=== PATIENT | female | born 1955 | race Hispanic/Latino ===

== ENCOUNTER 2021-05-01 18:03 | Emergency (ER) | payer OTHER ==
--- OUTSIDE RECORDS SUMMARY | 2021-05-01 18:14 | XMS REPORT | Continuity of Care Document ---
:[address] [facility] t Address [address] [place] [address] Care Team Providers Name Role Phone NEL Attending Clinician Unavailable HERBER Attending Clinician Unavailable Flavio Attending Clinician Elvin Attending Clinician Natalie Grossman Attending Clinician Milan Attending Clinician Natalie Attending Clinician Nico Bishop Attending Clinician Petey Cho Admitting Clinician Elvin Admitting Clinician Natalie Grossman Admitting Clinician Milan Admitting Clinician Natalie Admitting Clinician Nico Bishop Admitting Clinician Problems Condition Condition Condition Status Onset Resolution Last Treating Co mments Source Name Details Category Date Date Treatment Clinician Date CLOSED Diagnosis Active 2019-11-18 Mem oria AVULSION 2-15 22:02:00 l FRACTURE CLOSED 00:00: Jeancarlos n OF LESSER AVULSION 00 TROCH FRACTURE OF LESSER TROCH Active 11/09/2019 [facility] DISPLACED Diagnosis Active 2019-11-10 Memoria TROCANTER 2-15 03:45:00 l AVULSION 00:00: [place] FX DISPLACED 00 TROCANTER AVULSION FX Active 0 [facility] WOUND Diagnosis Active 2014-11-11 Mem oria DEHISCENCE 2- 21:56:00 l , OPEN FX WOUND 00:00: Jeancarlos n OF RECENT DEHISCENCE 00 LT B , OPEN FX OF RECENT LT B Active 11/04/2014 [facility] L LOWER Diagnosis Active 2014-10-14 Me moria EXTREMITY 1-06 21:56:00 l L LOWER 00:00: [place] EXTREMITY 00 Active 09/30/2014 [facility] L LOWER EX Diagnosis Active 2014-09-30 Memoria 1- 16:17:00 l L LOWER 00:00: [place] EX 00 Active 5 [facility] HRT Diagnosis Active 2014-10-16 Mem oria 1- 11:21:00 l HRT 00:00: Jerome 00 Active 09/30/2014 [facility] CHEST PAIN Diagnosis Active 2013-092014-08-14 Memoria 1- 09:47:00 l CHEST 00:00: Jerome PAIN 00 Active 08/11/2014 [facility] HIGH BLOOD Diagnosis Active 2013-092014-08-12 Memoria PRESSURE 1-17 06:34:00 l HIGH 00:00: [place] BLOOD 00 PRESSURE Active 08/11/2014 [facility] LT LEG Diagnosis Active 2013-092014-07-28 Mem oria ISCHEMIC 0- 22:12:00 l LT LEG 00:00: Jerome ISCHEMIC 00 Active 07/15/2014 [facility] BEDDED Diagnosis Active 2013-092014-08-20 Mem oria OUTPATIENT 0-21 15:21:00 l /L LEG BEDDED 00:00: Jerome THROMBOLYS OUTPATIENT 00 IS/L L /L LEG THROMBOLYS IS/L L Active 07/15/2014 [facility] 440.23 Diagnosis Active 2014-06-24 Mem oria 06-24 17:07:00 l 440.23 17:00: Jerome 00 Active 06/24/2014 [facility] PERIPHERAL Diagnosis Active 2014-06-10 Memoria ARTERIAL 06-05 12:18:00 l DISEASE, 00:00: Jerome ICD 443.9 PERIPHERAL 00 ARTERIAL DISEASE, ICD 443.9 Active 06/05/2014 [facility] PERIPHERAL Diagnosis Active 2014-06-05 Memoria ARTERIAL 06-05 10:25:00 l DISEASE 00:00: [place] PERIPHERAL 00 ARTERIAL DISEASE Active 06/05/2014 [facility] LEG PAIN, Diagnosis Active 2014-05-30 Memoria NUMBNESS 05-27 14:23:00 l LEG 00:00: [place] PAIN, 00 NUMBNESS Active 05/27/2014 [facility] Final: Problem 2014-10-12 Memor ia 10:13:13 l Final: Jerome 10/12/2014 [facility] Diabetes Problem Resolve 2019-11-15 Me moria mellitus d 23:23:13 l (disorder) Diabetes He rmann mellitus (disorder) Resolved Problem 11/15/2019 [facility] Hypertensi Problem Resolve 2019-11-15 Memoria ve d 23:23:13 l disorder, Jerome systemic Hypertensi arterial ve (disorder) disorder, systemic arterial (disorder) Resolved Problem 11/15/[address] [facility] Peripheral Problem Active 2019-11-15 M emoria arterial 23:23:13 l occlusive Jerome disease Peripheral (disorder) arterial occlusive disease (disorder) Active Problem 11/15/[address] [facility] PERIPH Diagnosis Active 2014-06-10 Mem oria VASCULAR 12:18:00 l DIS NOS PERIPH [place] VASCULAR DIS NOS Active [facility] PECHANGA Diagnosis Active 2014-07-21 Mem oria ARTERIES 13:11:00 l PECHANGA [place] ARTERIES Active [facility] ATH EXT Diagnosis Active 2014-07-21 Me moria NTV AT W 13:11:00 l CLAUDCT ATH EXT Jeancarlos n NTV AT W CLAUDCT Active [facility] OTHER Diagnosis Active 2014-07-28 Mem oria GENERAL 22:12:00 l SYMPTOMS OTHER Jerome GENERAL SYMPTOMS Active [facility] LOWER Diagnosis Active 2014-10-14 Mem oria EXTREMITY 21:56:00 l EMBOLISM LOWER [place] EXTREMITY EMBOLISM Active [facility] ADMINISTRT Diagnosis Active 2014-11-11 Memoria VE ENCOUNT 21:56:00 l NOS [place] ADMINISTRT VE ENCOUNT NOS Active [facility] History of History of Problem Resolve [facility] diabetes diabetes d ity of mellitus mellitus [place] [facility] Leg pain Leg pain Problem Active [facility] [place] [facility] Peripheral Peripheral Problem Active [facility] nivers arterial arterial ity of disease disease [place] [facility] Closed Closed Problem Active [facility] 2-part 2-part [place] [facility] [facility] fracture fracture ans of of proximal proximal end of end of left femur left femur with with routine routine healing healing Cataract Problem Resolve 2014-11-09 2014-11-09 Memoria (morpholog d 09-25 15:52:28 15:52:28 l ic Cataract 00:00: Jeancarlos n abnormalit (morpholog 00 y) ic abnormalit y) Resolved 09/25/2013 Problem 11/09/2014 [facility] Glaucoma Problem Resolve 2014-10-12 2014-10-12 Memoria (disorder) d 09-25 10:13:13 10:13:13 l Glaucoma 00:00: Jeancarlos n (disorder) 00 Resolved 09/25/2013 Problem 10/12/2014 [facility] Allergies, Adverse Reactions, Alerts This patient has no known allergies or adverse reactions. Social History Social Habit Start Date Stop Date Quantity Comments Source Social History 2019-11-11 2019-11-11 [facility] sadiq 05:41:31 05:41:31 Smoking Status Start Date Stop Date Source Never smoked tobacco (finding) [facility] Phys[facility] Medications Ordered Filled Start Stop Current Ordering Indication Dosage Frequency Signature Comments Components Source Medication Medication Date Date Medication? Clinician (SIG) Name Name Gabapentin Gabapentin Yes MAGDY Q0.3333D TAKE 1 [facility] 300 MG Oral 300 MG Oral 3-11 CRAVEN CAPSULE 3 ity of Capsule Capsule 00:00: P.A. TIMES [place] 00 DAILY. Physici ans Ergocalcife Yes 50,000 William fanta rol 30570 2-19 IntlUnit = l UNT Oral 16:42: 1 cap, PO, Her kingsley Capsule 00 QTue, # 8 cap, 0 Refill(s), Pharmacy: [facility] 1405 gabapentin Yes 300 mg = 1 M emoria 300 MG Oral 2-19 cap, PO, l Capsule 16:42: Bedtime, # Herm phillip 00 7 cap, 0 Refill(s), Pharmacy: [facility] tramadol Yes 100 mg = 2 Mem oria hydrochlori 2-19 tab, PO, l de 50 MG 16:42: Q12H, PRN Herm phillip Oral Tablet 00 Pain Score 7-10, # 40 tab, 0 Refill(s), Pharmacy: [facility] Acetaminoph Yes 1 tab, PO, Memoria en 325 MG / 2-19 Q6H, PRN l Hydrocodone 16:42: Pain Score [place] Bitartrate 00 7-10, # 20 7.5 MG Oral tab, 0 Tablet Refill(s), [[facility]: 7.5/325] [facility] apixaban 5 Yes 5 mg = 1 Mem oria mg oral 2-19 tab, PO, l tablet 16:42: Q12H, # 42 Raquel nn 00 tab, 0 Refill(s), Pharmacy: [facility] Calcium Yes 500 mg = 1 William fanta Carbonate 2-19 tab, PO, l 500 MG 16:42: BID, # 60 Jeancarlos n Chewable 00 tab, 0 Tablet Refill(s), Pharmacy: [facility] Milk of No Notes: Memoria Magnesia 2-19 (Same as: l 11:49: Milk of [place] 00 Cecy, MOM) NS 1,000 mL No 1,000 mL, M emoria 2-18 Rate: 500 l 13:54: ml/hr, Jerome Infuse over: 2 hr, Route: IV, Dosing Weight 52.273 kg, Total Volume: 1,000, Start date: 11/12/19 7:54:00 INSTALLATION SERVICE REPRESENTATIVE, Duration: 2 hr, Stop date: 11/12/19 9:53:00 INSTALLATION SERVICE REPRESENTATIVE, 2.2, m2, 0 Calcium No Notes: Memoria Carbonate 2-17 500mg l 23:00: elemental [place] 00 calcium = 1250mg calcium carbonate. Contains 500mg elemental calcium. (Same As: OsCal 500) Cefazolin No Notes: Memori a 2-17 (Same As: l 16:00: Ancef, [place] 00 Kefzol) MEDICATION WASTE Product Size: 1000 mg Product Wasted: ___ mg Ergocalcife 2019- No Notes: William fanta rol 2-17 (Same as: l 16:00: Vitamin D) "Do Not Crush" Oxycodone 2019- No Notes: Memori a 2-17 (Same as: l 15:20: 'Roxicodon e) Hydromorpho 2019-0 No Notes: William fanta ne 2-17 Same as l 15:20: Dilaudid Flumazenil 2019- No Notes: Memor ia 2-17 (Same as: l 15:20: Romazicon) Naloxone 2019- No Notes: Memoria 2-17 Same as l 15:20: Narcan Ondansetron 2019- No Notes: William fanta 2-17 (Same as: l 15:20: Zofran) MEDICATION WASTE Product Size: 4 mg Product Wasted: ___ mg sennosides, 2019- No Notes: William fanta FDC 2-17 (Same as: l 03:00: Senokot) empaglifloz 2019-0 Yes 10 mg = 1 M emoria in 10 MG 2-17 tab, PO, l Oral Tablet 00:53: QAM, 0 Herm phillip [Jardiance] 00 Refill(s) latanoprost 2019-0 Yes 1 drp, William fanta 0.05 MG/ML 2-17 BOTH EYES, l Ophthalmic 00:53: QPM, 0 Raquel nn Solution 00 Refill(s) [Xalatan] NIFEdipine 2019-0 Yes 60 mg = 1 Me moria 60 mg oral 2-17 tab, PO, l tablet, 00:53: Daily, 0 Jeancarlos n extended 00 Refill(s) release rosuvastati 2019-0 Yes 20 mg = 1 M emoria n 20 mg 2-17 tab, PO, l oral tablet 00:53: Daily, 0 He rmann 00 Refill(s) Hydrochloro 2020-0 Yes 1 tab, PO, Memoria thiazide 2-17 Daily, 0 l 12.5 MG / 00:52: Refill(s) Her kingsley Lisinopril 00 20 MG Oral Tablet 3 ML Yes 10 unit, Memoria insulin 2-17 SUB-Q, l degludec 00:52: Daily, 0 Raquel nn 100 UNT/ML 00 Refill(s) Pen Injector [Tresiba] remove No Notes: Memoria patch 2-17 Remove l 00:00: patch 12 [place] 00 hours after applicatio n each day. NS 1,000 mL No 1,000 mL, M emoria 2-16 Rate: 500 l 16:05: ml/hr, [place] 00 Infuse over: 2 hr, Route: IV, Dosing Weight 52.273 kg, Total Volume: 1,000, Start date: 11/10/19 10:05:00 INSTALLATION SERVICE REPRESENTATIVE, Duration: 2 hr, Stop date: 11/10/19 12:04:00 INSTALLATION SERVICE REPRESENTATIVE, 1.49, m2, 0 Zofran No Notes: Memoria 2-16 (Same as: l 15:04: Zofran) Jerome 00 MEDICATION WASTE Product Size: 4 mg Product Wasted: ___ mg Docusate No Notes: Memoria 2-16 (Same as: l 15:00: Colace) [place] (Do Not Crush) heparin No Notes: Memoria sodium, 2-16 porcine l porcine 14:00: heparin Jerome 2500 UNT/ML 00 Injectable Solution Lidocaine No Notes: Memori a Hydrochlori 2-16 Apply only l de 0.05 12:00: once for Jeancarlos n MG/MG 00 up to 12 Transdermal hours in a Patch 24-hour [Lidoderm] period (12 hours on and 12 hours off). (Same as: Lidoderm) "Remove old patch before applicatio n of new patch" Acetaminoph No Notes: Max Memoria en 2-16 acetaminop l 12:00: hen 4000 Jerome 00 mg/day (4 gm/day). (Same as: Tylenol Extra Strength) gabapentin No Notes: Memor ia 2-16 (Same as: l 12:00: Neurontin) [place] 00 Methocarbam No Notes: William fanta ol 2-16 (Same l 12:00: as:Robaxin ) Levemir 2019-0 No Notes: Memoria FlexPen 2-16 Non-Formul l 11:46: umang Drug (Same as Levemir) "Single Patient Use Only" Do not hold insulin without contacting prescriber WASTE: F/P - Black; E - Municipal Trash Bin Stable for 42 days at room temperatur e Expires in days from ____Date Dextrose 2020-0 No 12.5 gm, Memor ia 50% Syringe 2-16 25 mL, l (D50W) 11:45: Route: IVP, Drug Form: INJ, Dosing Weight 51.364, kg, PRN, PRN Blood Glucose Results, Start date: 11/10/19 5:45:00 INSTALLATION SERVICE REPRESENTATIVE, Duration: 30 day, Stop date: 12/10/19 6:44:00 CDT, 0 Glucagon No 1 mg, Memoria 2-16 Route: IM, l 11:45: Drug form: PDR/INJ, PRN, Dosing Weight 51.364, kg, PRN Blood Glucose Results, Start date: 11/10/19 5:45:00 INSTALLATION SERVICE REPRESENTATIVE, Duration: 30 day, Stop date: 12/10/19 6:44:00 CDT, 0 Insulin 2019-0 No Notes: Memoria Lispro 2-16 (Same as: l 11:45: Humalog) Roll in palms of hands gently; Do not shake vigorously . WASTE: F/P - Black; E - Municipal Trash Bin Stable for 28 days at room temperatur e. Expires in days from ____Date Tramadol 2019-0 No Notes: Not Mem oria 2-16 to exceed l 11:44: 400mg/day. (Same As: Ultram) Dextrose 2019-0 No 12.5 gm, Memor ia 50% Syringe 2-16 25 mL, l (D50W) 11:43: Route: Jerome 00 IVP, Drug Form: INJ, Dosing Weight 51.364, kg, PRN, PRN Blood Glucose Results, Start date: 11/10/19 5:43:00 INSTALLATION SERVICE REPRESENTATIVE, Duration: 30 day, Stop date: 12/10/19 6:42:00 CDT, 0 Glucagon 2020-0 No 1 mg, Memoria 2-16 Route: IM, l 11:43: Drug form: [place] 00 PDR/INJ, PRN, Dosing Weight 51.364, kg, PRN Blood Glucose Results, Start date: 11/10/19 5:43:00 INSTALLATION SERVICE REPRESENTATIVE, Duration: 30 day, Stop date: 12/10/19 6:42:00 CDT, 0 Isolyte S 2020-0 No 2,000 mL, Mem oria PH-7.4 2-16 Route: IV, l (Bolus) IV 11:42: ONCE, Jeancarlos n Dosing Weight 51.364 kg, Start date: 11/10/19 5:42:00 INSTALLATION SERVICE REPRESENTATIVE, Stop date: 11/10/19 5:42:00 INSTALLATION SERVICE REPRESENTATIVE Ondansetron 2020-0 No 4 mg, Memor ia 2- Route: l 10:07: IVP, Drug [place] 00 form: INJ, ONCE, Dosing Weight 51.364, kg, Priority: STAT, Start date: 11/10/19 4:07:00 INSTALLATION SERVICE REPRESENTATIVE, Stop date: 11/10/19 4:07:00 INSTALLATION SERVICE REPRESENTATIVE Morphine 2020-0 No 4 mg, Memoria -16 Route: l 10:05: IVP, ONCE, [place] 00 Dosing Weight 51.364, kg, Priority: STAT, Start date: 11/10/19 4:05:00 INSTALLATION SERVICE REPRESENTATIVE, Stop date: 11/10/19 4:05:00 INSTALLATION SERVICE REPRESENTATIVE clindamycin Yes 300 mg = 1 Memoria 300 mg oral 2-13 cap, PO, l capsule 21:27: Q6H, # 56 Raquel nn 00 cap, 0 Refill(s) Ciprofloxac Yes 500 mg = 1 Memoria in 500 MG 2-13 tab, PO, l Oral Tablet 21:27: Q12H, # 28 Jerome [Cipro] 00 tab, 0 Refill(s) Acetaminoph Yes 1 tab, PO, Memoria en 300 MG / 2-13 Q4H, for l Codeine 20:39: pain, # 30 Herm phillip Phosphate 00 tab, 0 30 MG Oral Refill(s), Tablet other [Tylenol with Codeine #3] valsartan No Notes: Memori a 2-13 Same as l 15:00: Diovan Jerome Lovenox No Notes: Memoria 2-12 (Same as: l 15:00: Lovenox) Jerome 00 Docusate No Notes: Memoria Sodium 100 2-12 (Same as: l MG Oral 15:00: Colace) [place] Capsule 00 (Do Not [Colace] Crush) Sodium No 25 mL, Memoria Chloride 2-12 Route: IV, l 0.9% IV 14:32: Start [place] 00 date: 11/06/14 8:32:00, Duration: 30 day, Stop date: 12/06/14 9:31:00, PRN Line Flush BD Normal No Notes: Memori a Saline -12 (Same as: l Flush 14:32: BD [place] 00 Posiflush) Vancomycin No 2000 mg: Me moria 2-11 infuse l 23:00: over 2.5 [place] 00 hours cefepime No Notes: Memoria 2-11 (Same As: l 23:00: Maxipime) [place] 00 10 ML No 1 gm, Memoria Cefazolin 11 Route: l 100 MG/ML 22:00: IVPB, Drug He rmann Prefilled 00 form: INJ, Syringe Q8H, Dosing Weight 51.364, kg, Start date: 11/05/14 16:00:00, Duration: 3 doses or times, Stop date: 11/06/14 8:00:00 Clindamycin No Notes: William fanta 2-11 (clindamyc l 20:20: in 150 Jerome 00 mg/1 ml (600 mg/4 ml VL) INJ) (Same As: Cleocin) Labetalol No Notes: Memori a 2-11 (Same as: l 20:19: Normodyne, Jerome Trandate) Push over 2 minutes Give bolus over 2-3 minutes. Hydralazine No Notes: William fanta 2-11 (Same as: l 20:19: Apresoline [place] ) Push over 5 minutes Flumazenil No Notes: Memor ia 2-11 (Same as: l 20:19: Romazicon) Naloxone No Notes: Memoria 2-11 Same as l 20:19: Narcan Ondansetron No Notes: William fanta 2-11 (Same as: l 20:19: Zofran) Diphenhydra No Notes: William fanta mine 2-11 (Same as: l 20:19: Benadryl) Meperidine No Notes: Memor ia 2-11 (Same As: l 20:19: Demerol) Morphine No Notes: Memoria 2-11 (Same l 20:19: as:MORPhin [place] 00 e Sulfate) Acetaminoph No Notes: Wliliam fanta en 325 MG / 2-11 (Same as: l Hydrocodone 20:12: [place] Raquel nn Bitartrate 00 325/5) Do 5 MG Oral not exceed Tablet 4gm/day of acetaminop hen. Morphine No Notes: Memoria 2-11 (Same l 20:12: as:MORPhin [place] 00 e Sulfate) Calcium No 1,000 mL, Memor ia Chloride 2-11 Rate: 100 l 0.0014 20:12: ml/hr, MEQ/ML / 00 Infuse Potassium over: 10 Chloride hr, Route: 0.004 IV, Dosing MEQ/ML / Weight Sodium 51.364 kg, Chloride Total 0.103 Volume: MEQ/ML / 1,000, Sodium Start Lactate date: 0.028 11/05/14 MEQ/ML 14:12:00, Injectable Duration: Solution 30 day, Stop date: 12/05/14 14:11:00 NS 1,000 mL No 1,000 mL, M emoria 11-05 Rate: 40 l 19:53: ml/hr, 00 Infuse over: 25 hr, Route: IV, Dosing Weight 51.364 kg, Total Volume: 1,000, Start date: 11/05/14 13:53:00, Duration: 30 day, Stop date: 12/05/14 13:52:00 Hydrochloro No Notes: William fanta thiazide 25 2-11 (Same as: l MG Oral 15:00: Hydrodiuri Herm phillip Tablet 00 l) With food. valsartan No Notes: Memori a 2-11 Same as l 15:00: Diovan Jerome 00 gabapentin No 600 mg, 2 Me moria 300 MG Oral 2-11 cap, l Capsule 06:00: Route: PO, Herm phillip 00 Drug form: CAP, Q8H, Dosing Weight 51.364, kg, Start date: 11/05/14 0:00:00, Duration: 30 day, Stop date: 12/04/14 16:00:00 metoprolol No 25 mg, Memor ia tartrate 2-11 Route: PO, l 03:00: Drug form: [place] 00 TAB, Q12H, Dosing Weight 51.364, kg, Start date: 11/04/14 21:00:00, Duration: 30 day, Stop date: 12/04/14 9:00:00 Levemir No Notes: Memoria 2-11 Same as l 03:00: Levemir Do Jerome 00 not hold insulin without contacting prescriber "single patient use only" Insulin, No Notes: Memoria Aspart, 2-11 Roll in l Human 01:38: palms of Jerome hands gently; Do not shake vigorously . (Same as: NovoLOG) "single patient use only" Stable for 28 days at room temperatur e. Expires in days from ____Date Dextrose No 25 gm, 50 William fanta 50% Syringe 2-11 mL, Route: l 01:38: IVP, Drug [place] 00 Form: INJ, Dosing Weight 51.364, kg, PRN, PRN Blood Glucose Results, Start date: 11/04/14 19:38:00, Duration: 30 day, Stop date: 12/04/14 20:37:00 Glucagon No 1 mg, Memoria 2-11 Route: IM, l 01:38: Drug form: Jerome 00 PDR/INJ, PRN, Dosing Weight 51.364, kg, PRN Blood Glucose Results, Start date: 11/04/14 19:38:00, Duration: 30 day, Stop date: 12/04/14 20:37:00 Diphenhydra No Notes: William fanta mine 11-05 (Same as: l 01:02: Benadryl) Acetaminoph No Notes: Do M emoria en 11-05 not exceed l 01:02: 4 gm/day. (Same as: Tylenol) Ondansetron No Notes: William fanta 11-05 (Same as: l 01:02: Zofran) Enoxaparin No Notes: Memor ia 11-05 (Same as: l 01:00: Lovenox) Morphine No Notes: Memoria 11-05 (Same l 00:57: as:MORPhin e Sulfate) gabapentin Yes 600 mg = 2 M emoria 300 MG Oral 17 cap, PO, l Capsule 00:23: Q8H, # 60 Raquel nn 44 cap, 0 Refill(s) Oyster No Notes: Memoria Shell 10-10 500mg l Calcium 500 23:00: elemental H ermann (1250 mg 00 calcium = calcium 1250mg carbonate) calcium oral tablet carbonate. Contains 500mg elemental calcium. (Same As: OsCal 500) metoprolol Yes 25 mg = 1 Me moria tartrate 25 1-16 tab, PO, l mg oral 19:31: Q12H, # 60 Herm phillip tablet 00 tab, 0 Refill(s) Hydrochloro Yes 25 mg = 1 M emoria thiazide 25 1-16 tab, PO, l MG Oral 19:31: Daily, # Jeancarlos n Tablet 00 30 tab, 0 Refill(s) Acetaminoph Yes 1 tab, PO, Memoria en 325 MG / -16 Q6H, Pain l Hydrocodone 19:31: Score 1-3, Jerome Bitartrate 00 # 40 tab, 5 MG Oral 0 Tablet Refill(s) Magnesium No Notes: Memori a Oxide 16 (Same as: l 18:00: Mag-Ox Jerome 00 400) Magnesium oxide 771xu=533d g elemental magnesium Dose=____m g magnesium oxide (___mg elemental magnesium) acetaminoph No Notes: William fanta en-hydrocod 10-09 (Same as: l one 325 21:57: [place] Jerome mg-5 mg 325/5) Do oral tablet not exceed 4gm/day of acetaminop hen. Diphenhydra No 1 appl, Mem oria mine 10-09 Route: l Hydrochlori 21:48: TOP, TID, H ermann de 20 MG/ML 00 Drug form: Topical CRM, PRN Cream as needed [Benadryl] for itching, Start date: 10/09/14 15:48:00, Duration: 30 day, Stop date: 11/08/14 15:47:00 Acetaminoph No Notes: William fanta en 325 MG / 10-09 (Same as: l Hydrocodone 18:00: [place] Raquel nn Bitartrate 00 325/5) Do 5 MG Oral not exceed Tablet 4gm/day of [[place] acetaminop 5/325] hen. Bisacodyl No Notes: Memori a -14 (Same As: l 19:28: Dulcolax, Jerome 00 Bisco-Lax) Lantus No Notes: Memoria 1-13 Same as l 17:52: Lantus Solostar PEN Do not hold insulin without contacting prescriber "single patient use only" Stable for 28 days at room temperatur e. Expires in days from ____Date Lovenox No Notes: Memoria 1-13 (Same as: l 15:00: Lovenox) Ondansetron No Notes: William fanta 1-12 (Same as: l 19:26: Zofran) Naloxone No Notes: Memoria 1-12 Same as l 19:26: Narcan Jerome 00 Ketorolac No 4 days Memor ia 1-12 l 19:26: [place] 00 Flumazenil No Notes: Memor ia 1-12 (Same as: l 19:26: Romazicon) Acetaminoph No Notes: William fanta en 12 Infuse l 19:26: over 15 Jerome 00 minutes Do not exceed 4gm/day of acetaminop hen 10 ML No 2 gm, Memoria Cefazolin -12 Route: l 100 MG/ML 17:50: IVPB, Drug He rmann Prefilled 00 form: INJ, Syringe ONCE, Dosing Weight 51.364, kg, Start date: 10/06/14 11:50:00, Stop date: 10/06/14 11:50:00 D5W 1/2NS No 1,000 mL, Mem oria 1000 mL 10-06 Rate: 50 l 15:06: ml/hr, [place] 00 Infuse over: 20 hr, Route: IV, Dosing Weight 51.364 kg, Total Volume: 1,000, Start date: 10/06/14 9:06:00, Duration: 30 day, Stop date: 11/05/14 9:05:00 metoprolol No Notes: Memor ia tartrate 1-11 (Same as: l 18:00: Lopressor) Lantus No Notes: Memoria 1-11 Same as l 17:32: Lantus Solostar PEN Do not hold insulin without contacting prescriber "single patient use only" Stable for 28 days at room temperatur e. Expires in days from ____Date Furosemide No Notes: Memor ia 1-11 (Same as: l 17:22: Lasix) heparin No 500 mL, Memoria additive 1-10 Rate: l 25,000 unit 22:05: 18.49 Raquel nn [18 00 ml/hr, unit/kg/hr] Infuse + Premix over: 27 Diluent hr, Route: Dextrose 5% IV, Dosing 500 mL Weight 51.364 kg, Total Volume: 500 mL, Start date: 10/04/14 16:05:00, Duration: 30 day, Stop date: 11/03/14 16:04:00 heparin No Route: Memoria sodium, 1-10 IVP, PRN, l porcine 22:05: 2,100 Jerome 1000 UNT/ML 00 unit, 2.1 Injectable mL, Drug Solution form: INJ, PRN, Heparin Protocol, Start date: 10/04/14 16:05:00 Stop date: 11/03/14 16:04:00, 30 day Heparin - No Route: IV, Me rosalesa one time 1-10 Drug form: l bolus for 22:05: INJ, ONCE, He rmann DVT/PE 00 Dosing Weight 51.364, kg, Priority: STAT, Start date: 10/04/14 16:05:00, Stop date: 10/04/14 16:05:00 Heparin - No Route: IV, moria one time 1-10 Drug form: l bolus for 20:13: INJ, ONCE, He rmann DVT/PE 00 Dosing Weight 51.364, kg, Priority: STAT, Start date: 10/04/14 14:13:00, Stop date: 10/04/14 14:13:00 heparin No 500 mL, Memoria additive 1-10 Rate: l 25,000 unit 20:13: 18.49 Raquel nn [18 00 ml/hr, unit/kg/hr] Infuse + Premix over: 27 Diluent hr, Route: Dextrose 5% IV, Dosing 500 mL Weight 51.364 kg, Total Volume: 500 mL, Start date: 10/04/14 14:13:00, Duration: 30 day, Stop date: 11/03/14 14:12:00 heparin No Pharmacy [facility], 1-10 To Manage, l porcine 20:13: Route: [place] 1000 UNT/ML 00 IVP, PRN, Injectable Drug form: Solution INJ, PRN, Heparin Protocol, Start date: 10/04/14 14:13:00 Stop date: 11/03/14 14:12:00, 30 day NS 1,000 mL No 1,000 mL, M emoria 110 Rate: 75 l 20:03: ml/hr, Jerome 00 Infuse over: 13.3 hr, Route: IV, Dosing Weight 51.364 kg, Total Volume: 1,000, Start date: 10/04/14 14:03:00, Duration: 30 day, Stop date: 11/03/14 14:02:00 Lasix No Notes: Memoria 1-10 (Same as: l 12:00: Lasix) Jerome 00 Nicardipine No Notes: William fanta -10 Same as: l 08:27: Cardene [place] 00 Concentrat ion: (0.2 mg /1 ml ) Hydralazine No Notes: William fanta - (Same as: l 18:59: Apresoline Jerome 00 ) Push over 5 minutes alteplase No Notes: Memori a 10 mg + -09 "Syringe l Sodium 06:08: for [place] Chloride 00 catheter 0.9% IV 500 clearance mL or interventi onal radiology use. Reconstitu te each vial of Cathflo Activase with 2.2ml Sterile Water resulting in a 1mg/ml solution. "Withdraw with a 5 micron filter needle." Stable for 8 hours only. (Same as: Activase) valsartan No Notes: Memori a - Same as l 02:00: Diovan [place] 00 Metoprolol No Notes: Memor ia 10-03 (Same as: l 02:00: Lopressor) [place] Push over 2 minutes hydrochloro No Notes: William fanta thiazide 25 10-03 (Same as: l mg oral 01:20: Hydrodiuri Herm phillip tablet 00 l) With food. Acetaminoph No Notes: William fanta en 325 MG / 10-02 (Same as: l Hydrocodone 23:34: [place] nn Bitartrate 00 325/5) Do 5 MG Oral not exceed Tablet 4gm/day of [[place] acetaminop 5/325] hen. Fentanyl No Notes: Memoria 10-02 (Same as: l 23:33: Sublimaze) [place] Preservat eusebia free. Levemir No Notes: Memoria FlexPen 10-02 Same as l 23:00: Levemir Do [place] not hold insulin without contacting prescriber "single patient use only" Metoprolol No Notes: Memor ia -08 (Same as: l 21:10: Lopressor) [place] Push over 2 minutes Benadryl No Notes: Memoria 1-08 (Same as: l 17:30: Benadryl) [place] alteplase No Notes: Memori a 10 mg + 1-08 "Syringe l Sodium 17:23: for [place] Chloride 00 catheter 0.9% IV 500 clearance mL or interventi onal radiology use. Reconstitu te each vial of Cathflo Activase with 2.2ml Sterile Water resulting in a 1mg/ml solution. "Withdraw with a 5 micron filter needle." Stable for 8 hours only. (Same as: Activase) heparin No 1,000 mL, Memor ia 10,000 unit 10-02 Rate: 30 l + Sodium 17:22: ml/hr, [place] Chloride 00 Infuse 0.9% IV over: 33.3 1,000 mL hr, Route: IV, Dosing Weight 51.364 kg, Total Volume: 1,000, Start date: 10/02/14 11:22:00, Duration: 30 day, Stop date: 11/01/14 11:21:00 valsartan No Notes: Memori a 10-02 Same as l 15:00: Diovan [place] Docusate No Notes: Memoria Sodium 100 10-02 (Same as: l MG Oral 15:00: Colace) [place] Capsule 00 (Do Not Crush) pneumococca No Notes: William fanta l capsular 10-02 (Same as: l polysacchar 15:00: Pneumovax H ermann adithya type 1 00 23) vaccine / Refrigerat pneumococca e l capsular polysacchar adithya type 10A vaccine / pneumococca l capsular polysacchar adithya type 11A vaccine / pneumococca l capsular polysacchar adithya type 12F vaccine / pneumococca l capsular polysacchar pantoprazol No Notes: For Memoria e 10-02 IV push l 15:00: reconstitu [place] 00 te with 10 ml 0.9% sodium chloride and push over 2 minutes. (Same as: Protonix) Promethazin No 12.5 mg, Me moria e 10-02 Route: l 13:48: IVPB, [place] 00 ONCE, Dosing Weight 51.364, kg, Start date: 10/02/14 7:48:00, Stop date: 10/02/14 7:48:00 gabapentin No Notes: Memor ia 300 MG Oral 10-02 (Same as: l Capsule 06:00: Neurontin) Herm phillip 00 Hydromorpho No Notes: William fanta ne -08 (Same as: l 02:32: Dilaudid) [place] 07 conc = 0.5 mg/ml Hydromorph one TAP PULLER Dose: ;Delay: ;Basal: Hydromorpho No Notes: William fanta ne -08 (Same as: l 00:30: Dilaudid) [place] 00 conc = 0.5 mg/ml Hydromorph one TAP PULLER Dose: ;Delay: ;Basal: Insulin, No Notes: Memoria Aspart, 10-02 Roll in l Human 00:26: palms of Jerome hands gently; Do not shake vigorously . (Same as: NovoLOG) "single patient use only" Stable for 28 days at room temperatur e. Expires in days from ____Date Dextrose No 25 gm, 50 William fanta 50% Syringe 1-08 mL, Route: l 00:26: IVP, Drug [place] 00 Form: INJ, Dosing Weight 51.364, kg, PRN, PRN Blood Glucose Results, Start date: 10/01/14 18:26:00, Duration: 30 day, Stop date: 10/31/14 18:25:00 Glucagon No 1 mg, Memoria 10-02 Route: IM, l 00:26: Drug form: [place] 00 PDR/INJ, PRN, Dosing Weight 51.364, kg, PRN Blood Glucose Results, Start date: 10/01/14 18:26:00, Duration: 30 day, Stop date: 10/31/14 18:25:00 Naloxone No Notes: Memoria -08 Same as l 00:19: Narcan Jerome heparin No 500 mL, Memoria additive 10-02 Rate: l 25,000 unit 00:15: 18.49 Raquel nn [18 00 ml/hr, unit/kg/hr] Infuse + Premix over: 27 Diluent hr, Route: Dextrose 5% IV, Dosing 500 mL Weight 51.364 kg, Total Volume: 500 mL, Start date: 10/01/14 18:15:00, Duration: 30 day, Stop date: 10/31/14 18:14:00 heparin No Route: Memoria sodium, 10-02 IVP, PRN, l porcine 00:15: 2,100 [place] 1000 UNT/ML 00 unit, 2.1 Injectable mL, Drug Solution form: INJ, PRN, Heparin Protocol, Start date: 10/01/14 18:15:00 Stop date: 10/31/14 18:14:00, 30 day Hydralazine No Notes: William fanta 10-01 (Same as: l 23:37: Apresoline ) Push over 5 minutes Hydromorpho No Notes: William fanta ne 10-01 Same as: l 17:13: Dilaudid Hydromorpho No Notes: William fatna ne 10-01 Same as: l 16:24: Dilaudid clopidogrel Yes 75 mg = 1 M emoria 75 mg oral 10-01 tab, PO, l tablet 15:30: Daily, # [place] 00 30 tab, 0 Refill(s) valsartan Yes 320 mg = 1 Me moria 320 mg oral 07 tab, PO, l tablet 15:30: Daily, # [place] 00 30 tab, 0 Refill(s) Potassium No Notes: Memori a Chloride 10-01 (Same as: l 15:13: K-Dur 20) "Do Not Crush" With food and full glass of water Phosphorus No Notes: Memor ia / Potassium 10-01 (Same as: l 15:13: K [place] 00 Phosphate. ) 1 mMol phoshate has 1.47 mEq potassium Infuse over 4 hours Sodium No Special Memoria Phosphate, 10-01 Instructio l Monobasic 15:13: ns: FOR [place] ICU USE ONLY Calcium No Special Memoria Gluconate 10-01 Instructio l 15:13: ns: FOR [place] ICU USE ONLY Magnesium No Special Memor ia Sulfate 10-01 Instructio l 15:13: ns: FOR [place] 00 ICU USE ONLY Magnesium No Notes: Memori a Oxide 10-01 (Same as: l 15:13: Mag-Ox [place] 00 400) Magnesium oxide [id number] g elemental magnesium Dose=____m g magnesium oxide (___mg elemental magnesium) Neutra-Phos No Notes: William fanta -07 (Same as: l 15:13: Neutra-Diego Jerome 00 s) Each 1.25 gm pkt has 250mg phosphorou s. Mix w/2.5oz water and stir. Calcium No Notes: Memoria Carbonate 10-01 (Same As: l 500 MG 15:13: Tums) [place] Chewable 00 Calcium Tablet Carbonate 500 mg = 200 mg elemental calcium Dose = mg calcium carbonate ( mg elemental calcium) Sodium No 1,000 mL, Memori a Chloride 10-01 Rate: 100 l 0.154 15:13: ml/hr, Jerome MEQ/ML 00 Infuse Injectable over: 10 Solution hr, Route: IV, Dosing Weight 51.955 kg, Total Volume: 1,000, Start date: 10/01/14 9:13:00, Duration: 30 day, Stop date: 10/31/14 9:12:00 Saline No Notes: Memoria Flush 0.9% 10-01 (Same as: l 15:13: BD [place] Posiflush) Ondansetron No Notes: William fanta 10-01 (Same as: l 15:13: Zofran) [place] Lisinopril 2013-09 No Notes: Memor ia 10-13 (Same as: l 15:00: Prinivil, Jerome Zestril) metoprolol 2013-09 No Notes: Memor ia tartrate 10-13 (Same as: l 03:00: Lopressor) [place] 00 Xarelto 2013-09 No Notes: Memoria -18 (Same as: l 23:00: Xarelto) [place] 00 Do Not Crush Docusate 2013-09 No Notes: Memoria Sodium 100 10-12 (Same as: l MG Oral 23:00: Colace) [place] Capsule 00 (Do Not Crush) gabapentin 2013-09 No Notes: Memor ia 300 MG Oral 10-12 (Same as: l Capsule 22:00: Neurontin) Herm phillip 00 Non-Formula 2013-09 Yes Special Mem oria ry Home 10-12 Instructio l Medication 18:12: ns: [place] jentadueto 2.5mg/1000 mg PO daily metoprolol 2013-09 No Notes: Memor ia tartrate 10-12 (Same as: l 18:00: Lopressor) tramadol 2013-09 No Notes: Not Mem oria hydrochlori 10-12 to exceed l de 50 MG 16:39: 400mg/day. Her kingsley Oral Tablet 00 (Same As: Ultram) clopidogrel 2013-09 No Notes: William fanta 10-12 (Same As: l 16:37: Plavix) Levemir 2013-09 No Notes: Memoria FlexPen 10-12 Same as l 16:28: Levemir Do [place] not hold insulin without contacting prescriber "single patient use only" Saline 2013-09 No Notes: Memoria Flush 0.9% 10-12 (Same as: l 15:00: BD [place] 00 Posiflush) Aspirin 81 2013-09 No Notes: Do Me moria MG Enteric 10-12 not crush l Coated 15:00: or chew. Jerome Tablet 00 (Same As: Ecotrin) Sodium 2013-09 No 250 mL, Memoria Chloride 10-12 Route: l 0.9% IV 12:39: IVPB, [place] 00 Start date: 08/12/14 6:39:00, Duration: 30 day, Stop date: 09/11/14 6:38:00, PRN Line Flush BD Normal 2013-09 No Notes: Memori a Saline 10-12 (Same as: l Flush 12:39: BD [place] 00 Posiflush) Saline 2013-09 No Notes: Memoria Flush 0.9% 18 (Same as: l 12:34: BD [place] 00 Posiflush) Morphine 2013-09 No Notes: Memoria - (Same l 12:34: as:MORPhin [place] 00 e Sulfate) Nitroglycer 2013-09 No Notes: William fanta in 10-12 (Same l 12:34: as:Nitroqu Jerome 00 ick, Nitrostat) "Do Not Crush" Sublingual tablet Sodium 2013-09 No 1,000 mL, Memori a Chloride 10-12 Rate: 50 l 0.154 12:34: ml/hr, Jerome MEQ/ML 00 Infuse Injectable over: 20 Solution hr, Route: IV, Dosing Weight 53.182 kg, Total Volume: 1,000, Start date: 08/12/14 6:34:00, Duration: 30 day, Stop date: 09/11/14 6:33:00 Metoprolol 2013-09 No Notes: Memor ia 10-12 (Same as: l 09:52: Lopressor) Push over 2 minutes Ondansetron 2013-09 No 4 mg, Memor ia 10-12 Route: l 09:52: IVP, ONCE, Dosing Weight 53.182, kg, Priority: STAT, Start date: 08/12/14 3:52:00, Stop date: 08/12/14 3:52:00 aspirin 2013-09 No 324 mg, Memoria 10-12 Route: PO, l 09:52: ONCE, Dosing Weight 53.182, kg, Priority: STAT, Start date: 08/12/14 3:52:00, Stop date: 08/12/14 3:52:00 Saline 2013-09 No Notes: Memoria Flush 0.9% 10-12 (Same as: l 09:52: BD [place] 00 Posiflush) tramadol 2013-09 Yes 50 mg = 1 William fanta hydrochlori 0-29 tab, PO, l de 50 MG 21:02: Q4H, Pain, Her kingsley Oral Tablet 00 # 60 tab, 0 Refill(s) Acetaminoph 2013-09 Yes 1 tab, PO, Memoria en 300 MG / 0-29 Q4H, for l Codeine 20:38: pain, # 30 Herm phillip Phosphate 00 tab, 1 30 MG Oral Refill(s) Tablet [Tylenol with Codeine #3] POLYETHYLEN 2013-09 Yes PO, Daily, Memoria E GLYCOL 0-29 0 l 3350 18:47: Refill(s) Jerome tramadol 2013-09 Yes 100 mg = 2 Mem oria hydrochlori 0-29 tab, PO, l de 50 MG 18:47: Q6H, 0 Jerome Oral Tablet 00 Refill(s) gabapentin 2013-09 Yes 600 mg = 2 M emoria 300 MG Oral 0-29 cap, PO, l Capsule 18:47: Q8H, # 60 Raquel nn 00 cap, 0 Refill(s) Acetaminoph 2013-09 Yes 1 tab, PO, Memoria en 300 MG / 0-29 Q4H, # 30 l Codeine 18:47: tab, 0 [place] Phosphate 00 Refill(s) 30 MG Oral Tablet [Tylenol with Codeine #3] Tramadol 2013-09 No Notes: Not Mem oria 0-28 to exceed l 17:00: 400mg/day. Jerome 00 (Same As: Ultram) gabapentin 2013-09 No Notes: Memor ia 300 MG Oral 0-28 (Same as: l Capsule 05:00: Neurontin) Herm phillip Acetaminoph 2013-09 No Notes: Do M emoria en 300 MG / 0-28 not exceed l Codeine 01:00: 4gm/day of Herm phillip Phosphate 00 acetaminop 30 MG Oral hen. Tablet (Same as: [Tylenol Tylenol with with Codeine #3] Codeine # 3) Tramadol 2013-09 No Notes: Not Mem oria 0-27 to exceed l 23:00: 400mg/day. [place] 00 (Same As: Ultram) Acetaminoph 2013-09 No Notes: Do M emoria en 325 MG / 0-27 not exceed l Hydrocodone 21:12: 4gm/day of [place] Bitartrate 00 acetaminop 10 MG Oral hen. Tablet (Same as: [[place] 10/325] 325/10) Roxicodone 2013-09 No Notes: Memor ia 0-27 (Same as: l 20:57: Roxicodone 23 ) molasses 2013-09 No Notes: Memoria 0-27 (Same l 15:14: as:Molasse [place] 00 s) Miralax 2013-09 No Notes: Memoria 0-27 Dissolve l 14:00: in 8 oz of [place] 00 water or juice. (Same as: Miralax) gabapentin 2013-09 No Notes: Memor ia 300 MG Oral 0-27 (Same as: l Capsule 05:00: Neurontin) Herm phillip Zofran 2013-09 No Notes: Memoria 0-27 (Same as: l 01:06: Zofran) [place] Docusate 2013-09 No 100 mg, 1 William fanta Sodium 100 0-26 cap, l MG Oral 22:00: Route: PO, Herm phillip Capsule 00 BID, [Colace] Dosing Weight 60.3, kg, Start date: 07/20/14 17:00:00, Duration: 30 day, Stop date: 08/19/14 9:00:00 Roxicodone 2013-09 No Notes: Memor ia 0-26 (Same as: l 21:28: Roxicodone ) Bisacodyl 2013-09 No 10 mg, Memori a 0-26 Route: PO, l 21:21: BID, Jerome Dosing Weight 60.3, kg, Priority: NOW, Start date: 07/20/14 16:21:00, Duration: 30 day, Stop date: 08/19/14 9:00:00 Acetaminoph 2013-09 No Notes: Do M emoria en 325 MG / 0-26 not exceed l Hydrocodone 21:20: 4gm/day of [place] Bitartrate 00 acetaminop 10 MG Oral hen. Tablet (Same as: [[place] 10/325] 325/10) oxyCODONE 2013-09 No 10 mg, Memori a 10 mg 0-26 Route: PO, l extended 21:19: Drug form: Her kingsley release 00 ERTAB, Q8H, Priority: NOW, Start date: 07/20/14 16:19:00, Duration: 30 day, Stop date: 08/19/14 16:00:00 Tramadol 2013-09 No Notes: Not Mem oria 0-26 to exceed l 21:18: 400mg/day. Jerome (Same As: Ultra) gabapentin 2013-09 No Notes: Memor ia 100 MG Oral 0-26 (Same as: l Capsule 14:00: Neurontin) Herm phillip Lovenox 2013-09 No Notes: Memoria 0-25 (Same as: l 17:00: Lovenox) [place] 00 Plavix 2013-09 No Notes: Memoria 0-25 (Same As: l 17:00: Plavix) [place] 00 aspirin 2013-09 No Notes: Memoria 0-25 Take with l 14:00: food. [place] Albumin 2013-09 No Notes: Memoria Human, FDC 0-25 LOT#: l 50 MG/ML 03:17: Her kingsley Injectable 00 ___ Solution Mfg: (Same as: Albuminar) "blood product derivative " Hydromorpho 2013-09 No 30 mL, William fanta ne 0-25 Route: IV, l 01:00: TAP PULLER Dose: [place] 00 0.2 mg, TAP PULLER Lockout: 10 minutes, Continuous Basal Rate: 0 mg, 4 Hour Limit (In MG): 6, Drug Form: INJ, Continuous , Start date: 07/18/14 20:00:00 hydromorpho 2013-09 No Notes: William fanta ne 15 mg 0-25 (Same as: l 00:49: Dilaudid) Jerome conc = 0.5 mg/ml Hydromorph one TAP PULLER Dose: ;Delay: ;Basal: Acetaminoph 2013-09 No Notes: Do M emoria en 325 MG / 0-24 not exceed l Hydrocodone 20:28: 4gm/day of [place] Bitartrate 00 acetaminop 10 MG Oral hen. Tablet (Same as: [[place] 10/325] 325/10) Fentanyl 2013-09 No Notes: Memoria 0-24 (Same as: l 20:27: Sublimaze) [place] Preservat eusebia free. Acetaminoph 2013-09 No Notes: Do M emoria en 325 MG / 0-24 not exceed l Hydrocodone 20:27: 4gm/day of [place] Bitartrate 00 acetaminop 10 MG Oral hen. Tablet (Same as: [[place] 10/325] 325/10) Labetalol 2013-09 No 5 mg, 1 Memor ia 0-24 mL, Route: l 18:47: IVP, Drug [place] 00 form: INJ, ONCE, Dosing Weight 57.7, kg, Start date: 07/18/14 13:47:00, Stop date: 07/18/14 13:47:00 Ancef 2013-09 No 2 gm, Memoria 0-24 Route: l 13:57: IVPB, [place] 00 ONCE, Dosing Weight 57.7, kg, Start date: 07/18/14 8:57:00, Duration: 1 doses or times, Stop date: 07/18/14 8:57:00 Sodium 2013-09 No 250 mL, Memoria Chloride 0-24 Rate: On l 0.9% 12:06: call for Jerome (titrate) 00 use with 250 mL blood product administra tion, Dosing Weight 57.7, kg, Route: IV, Total Volume: 250, Start Date: 07/18/14 7:06:00, Duration: 1 day, Stop date: 07/19/14 7:05:00, Replace Every: 24 hr Ambien 2013-09 No Notes: Memoria 0-23 (Same As: l 21:34: Ambien) [place] 00 Bisacodyl 2013-09 No Notes: Memori a 0-23 (Same As: l 16:05: Dulcolax, [place] 00 Bisco-Lax) Miralax 2013-09 No Notes: Memoria 0-23 Dissolve l 16:04: in 8 oz of [place] 00 water or juice. (Same as: Miralax) Lisinopril 2013-09 No Notes: Memor ia 0-23 (Same as: l 14:00: Prinivil, Jerome 00 Zestril) Docusate 2013-09 No Notes: Memoria Sodium 100 0-23 (Same as: l MG Oral 02:00: Colace) [place] Capsule 00 (Do Not [Colace] Crush) Bisacodyl 2013-09 No Notes: Memori a 0-23 (Same As: l 02:00: Dulcolax, Jerome 00 Correctol) (Do Not Crush) "Do Not Crush" Insulin 2013-09 No Notes: Memoria Glargine 0-23 Same as l 02:00: Lantus [place] 00 Solostar PEN Do not hold insulin without contacting prescriber "single patient use only" Stable for 28 days at room temperatur e. Expires in days from ____Date NS 0.45% IV 2013-09 No 1,000 mL, M emoria 1,000 mL 0-22 Rate: 100 l 23:34: ml/hr, [place] 00 Infuse over: 10 hr, Route: IV, Dosing Weight 52.7 kg, Total Volume: 1,000, Start date: 07/16/14 18:34:00, Duration: 30 day, Stop date: 08/15/14 18:33:00 Hydromorpho 2013-09 No Notes: William fanta ne 0-22 (Same as: l 23:30: Dilaudid) conc = 0.5 mg/ml Hydromorph one TAP PULLER Dose: ;Delay: ;Basal: Insulin, 2013-09 No Notes: Memoria Aspart, 0-22 Roll in l Human 23:01: palms of Jerome 00 hands gently; Do not shake vigorously . (Same as: NovoLOG) "single patient use only" Stable for 28 days at room temperatur e. Expires in days from ____Date Dextrose 2013-09 No 12.5 gm, Memor ia 50% Syringe 0-22 25 mL, l 23:01: Route: [place] IVP, Drug Form: INJ, Dosing Weight 52.7, kg, PRN, PRN Blood Glucose Results, Start date: 07/16/14 18:01:00, Duration: 30 day, Stop date: 08/15/14 17:00:00 Glucagon 2013-09 No 1 mg, Memoria 0-22 Route: IM, l 23:01: Drug form: [place] 00 PDR/INJ, PRN, Dosing Weight 52.7, kg, PRN Blood Glucose Results, Start date: 07/16/14 18:01:00, Duration: 30 day, Stop date: 08/15/14 17:00:00 Acetaminoph 2013-09 No Notes: William fanta en 325 MG / 0-22 Same as l Hydrocodone 22:57: [place] nn Bitartrate 00 325-7.5mg 7.5 MG Oral Do not Tablet exceed [[place] 4gm/day of 7.5/325] acetaminop hen. Protonix 2013-09 No Notes: For Mem oria 0-22 IV push l 21:30: reconstitu te with 10 ml 0.9% sodium chloride and push over 2 minutes. (Same as: Protonix) Calcium 2013-09 No Special Memoria Gluconate 0-22 Instructio l 15:28: ns: FOR [facility] ICU USE ONLY Calcium 2013-09 No Notes: Memoria Carbonate 0-22 (Same As: l 500 MG 15:28: Tums) [place] Chewable 00 Calcium Tablet Carbonate 500 mg = 200 mg elemental calcium Dose = mg calcium carbonate ( mg elemental calcium) Magnesium 2013-09 No Special Memor ia Sulfate 0-22 Instructio l 15:28: ns: FOR [facility] ICU USE ONLY Magnesium 2013-09 No Notes: Memori a Oxide 0-22 (Same as: l 15:28: Mag-Ox Jerome 00 400) Magnesium oxide [id number] g elemental magnesium Dose=____m g magnesium oxide (___mg elemental magnesium) Phosphorus 2013-09 No Notes: Memor ia / Potassium 0-22 (Same as: l 15:28: K [place] 00 Phosphate. ) 1 mMol phoshate has 1.47 mEq potassium Infuse over 4 hours Neutra-Phos 2013-09 No Notes: William fanta 0-22 (Same as: l 15:28: Neutra-Diego [place] 00 s) Each 1.25 gm pkt has 250mg phosphorou s. Mix w/2.5oz water and stir. Sodium 2013-09 No Special Memoria Phosphate, 0-22 Instructio l Monobasic 15:28: ns: FOR [place] nn ICU USE ONLY Potassium 2013-09 No Notes: Memori a Chloride 0-22 (Same as: l 15:28: KCL) [place] 00 Infuse over 2 hours. Zofran 2013-09 No Notes: Memoria 0-22 (Same as: l 15:27: Zofran) [place] 00 heparin 2013-09 No Notes: Memoria 10,000 unit 0-22 porcine l + Sodium 13:53: heparin Jeancarlos n Chloride 00 0.9% IV 1,000 mL alteplase 2013-09 No Notes: . William fanta 20 mg + 0-22 (Same as: l Sodium 13:51: Activase) Jeancarlos n Chloride 00 0.9% IV 1,000 mL Labetalol 2013-09 No 10 mg, 2 William fanta 0-22 mL, Route: l 06:13: IVP, Drug form: INJ, ONCE, Dosing Weight 52.7, kg, Start date: 07/16/14 1:13:00, Stop date: 07/16/14 1:13:00 Labetalol 2013-09 No 10 mg, 2 William fanta 0-22 mL, Route: l 05:03: IVP, Drug Jerome 00 form: INJ, ONCE, Dosing Weight 52.7, kg, PRN Hypertensi on, Start date: 07/16/14 0:03:00 Naloxone 2013-09 No Notes: Memoria 0-22 Same as l 01:30: Narcan [place] 00 Hydromorpho 2013-09 No Notes: William fnata ne 0-22 (Same as: l 01:30: Dilaudid) Jerome 00 conc = 0.5 mg/ml Hydromorph one TAP PULLER Dose: ;Delay: ;Basal: Dextrose 2013-09 No 25 gm, 50 William fanta 50% Syringe 0-22 mL, Route: l 00:35: IVP, Drug Form: INJ, Dosing Weight 52.7, kg, PRN, PRN Blood Glucose Results, Start date: 07/15/14 19:35:00, Duration: 30 day, Stop date: 08/14/14 18:34:00 Insulin 2013-09 No Notes: Memoria regular 100 0-22 (Same as: l unit + 00:35: Humulin R Jeancarlos n Sodium 00 and Chloride NovoLIN R) 0.9% (Do not (titrate) shake) 99 mL Morphine 2013-09 No Notes: Memoria 0-22 Dose: l 00:30: Jerome 00 Delay: Basal rate: 4hr limit: (Same as:Anibal tatum) Naloxone 2013-09 No Notes: Memoria 0-22 Same as l 00:11: Narcan [place] 00 D5W 1/2NS + 2013-09 No Notes: William fanta KCL 20mEq/L 0-22 PREMIX IV l 1000ml 00:10: - Do Not Jerome (Premix) 00 Alter 1,000 mL Hydralazine 2013-09 No 10 mg, William fanta 0-21 Route: IV, l 21:38: ONCE, [place] 00 Dosing Weight 52.727, kg, Start date: 07/15/14 16:38:00, Stop date: 07/15/14 16:38:00 Metformin No Notes: Memori a 9-17 (Same as: l 19:00: Glucophage Jerome 00 ) Take with meal rivaroxaban Yes 20 mg = 1 M emoria 20 MG Oral 9-16 tab, PO, l Tablet 14:46: QPM, # 30 Jeancarlos n [Xarelto] 00 tab, 0 Refill(s) Docusate Yes 100 mg = 1 Mem oria Sodium 100 9-16 cap, PO, l MG Oral 14:46: BID, # 30 Raquel nn Capsule 00 cap, 0 Refill(s) clopidogrel Yes 75 mg = 1 M emoria 75 mg oral 9-16 tab, PO, l tablet 14:46: Daily, # Jerome 00 30 tab, 0 Refill(s) Acetaminoph Yes 1 tab, PO, Memoria en 325 MG / -16 Q4H, Pain l Hydrocodone 14:46: Score 1-3, [place] Bitartrate 00 # 12 tab, 5 MG Oral 0 Tablet Refill(s) Lisinopril No Notes: Memor ia -16 (Same as: l 14:00: Prinivil, Jerome 00 Zestril) Plavix No Notes: Memoria -16 (Same As: l 14:00: Plavix) Jerome 00 aspirin No Notes: Do Memor ia -16 not crush l 14:00: or chew. [place] 00 (Same As: Ecotrin) heparin No 500 mL, Memoria additive 06-10 Rate: l 25,000 unit 00:00: 17.02 Raquel nn [18 00 ml/hr, unit/kg/hr] Infuse + Premix over: 29.4 Diluent hr, Route: Dextrose 5% IV, Dosing 500 mL Weight 47.28 kg, Total Volume: 500 mL, Start date: 06/09/14 19:00:00, Duration: 30 day, Stop date: 07/09/14 18:59:00 heparin No Route: Memoria sodium, -16 IVP, PRN, l porcine 00:00: 1,900 Jerome 1000 UNT/ML 00 unit, 1.9 Injectable mL, Drug Solution form: INJ, PRN, Heparin Protocol, Start date: 06/09/14 19:00:00 Stop date: 07/09/14 18:59:00, 30 day gabapentin No Notes: Memor ia 100 MG Oral 9-15 (Same as: l Capsule 22:00: Neurontin) Docusate No Notes: Memoria 9-15 (Same as: l 22:00: Colace) (Do Not Crush) Hydralazine No 10 mg, William fanta 9-15 Route: IV, l 21:13: ONCE, Dosing Weight 52.727, kg, Start date: 06/09/14 16:13:00, Stop date: 06/09/14 16:13:00 Hydralazine No 10 mg, William fanta 9-15 Route: IV, l 21:10: Q10Min, Dosing Weight 52.727, kg, Start date: 06/09/14 16:10:00, Duration: 30 day, Stop date: 07/09/14 16:00:00 Ondansetron No Notes: William fanta 9-15 (Same as: l 20:36: Zofran) Hydromorpho No Notes: William fanta ne 15 Same as: l 20:36: Dilaudid Flumazenil No Notes: Memor ia -15 (Same as: l 20:36: Romazicon) Naloxone No Notes: Memoria 9-15 (Same as: l 20:36: Narcan) Labetalol No 10 mg, 2 William fanta 9-15 mL, Route: l 20:36: IVP, Drug form: INJ, Q5Min, Dosing Weight 52.727, kg, PRN Elevated BP, Start date: 06/09/14 15:36:00, Duration: 5 doses or times, Stop date: 06/10/14 0:00:00 Insulin, No 60 Memoria Regular, 9-15 units) l Pork 20:35: Stable for 28 days at room temperatur e Expires in days from ____Date Dextrose No 25 gm, 50 William fanta 50% Syringe 9-15 mL, Route: l 20:35: IVP, Drug Form: INJ, Dosing Weight 52.727, kg, PRN, PRN Blood Glucose Results, Start date: 06/09/14 15:35:00, Duration: 30 day, Stop date: 07/09/14 15:34:00 Glucagon No 1 mg, Memoria -15 Route: IM, l 20:35: Drug form: PDR/INJ, PRN, Dosing Weight 52.727, kg, PRN Blood Glucose Results, Start date: 06/09/14 15:35:00, Duration: 30 day, Stop date: 07/09/14 15:34:00 Plavix No Notes: ( Memoria 15 Same as: l 20:31: Plavix) Ondansetron No Notes: William fanta 06-09 (Same as: l 20:29: Zofran) Acetaminoph No Notes: William fanta en 325 MG / 06-09 (Same as: l Hydrocodone 20:29: [place] Raquel nn Bitartrate 00 325/5) Do 5 MG Oral not exceed Tablet 4gm/day of acetaminop hen. Ancef No 1 gm, Memoria 15 Route: l 17:54: IVPB, ONCE, Dosing Weight 52.727, kg, Start date: 06/09/14 12:54:00, Duration: 1 doses or times, Stop date: 06/09/14 12:54:00 gabapentin Yes PO, 0 Memori a 100 MG Oral -15 Refill(s) l Capsule 13:57: [place] 00 Metformin Yes 0 Memoria 9-15 Refill(s) l 13:57: [place] 00 3 ML Yes SUB-Q, Memoria insulin 9-15 QPM, 0 l detemir 100 13:55: Refill(s) H ermann UNT/ML 00 Prefilled Syringe [Levemir] lisinopril Yes 10 mg = 1 Me moria 10 mg oral 9-15 tab, PO, 0 l tablet 13:54: Refill(s) Jeancarlos n 00 Levemir [facility] Plavix 75 Plavix 75 Yes Unive rs MG Oral MG Oral ity of Tablet [facility]t [facility] amlodipine amlodipine No amlodipine [place] 10 mg 10 mg 10 mg da tablet TAKE tablet TAKE tablet Medical 1 TABLET BY 1 TABLET BY TAKE 1 Group MOUTH ONCE MOUTH ONCE TABLET BY DAILY DAILY MOUTH ONCE DAILY atorvastati atorvastati No atorvastat [place] 10 mg n 10 mg in 10 mg da tablet TAKE tablet TAKE tablet Medical 1 TABLET BY 1 TABLET BY TAKE 1 Group MOUTH ONCE MOUTH ONCE TABLET BY DAILY AT DAILY AT MOUTH ONCE NIGHT NIGHT DAILY AT NIGHT brimonidine brimonidine No brimonidin [place] 0.15 % eye 0.15 % eye e 0.15 % da drops drops eye drops [facility] clopidogrel clopidogrel No clopidogre [place] 75 mg 75 mg l 75 mg da tablet Take tablet Take tablet Medical 1 tablet by 1 tablet by Take 1 Group mouth once mouth once tablet by daily daily mouth once daily Eliquis 5 Eliquis 5 No Eliquis 5 [facility] mg tablet mg tablet mg tablet da [facility] gabapentin gabapentin No gabapentin [place] 300 mg 300 mg 300 mg da capsule capsule capsule Medica l Take 1 Take 1 Take 1 Group capsule 3 capsule 3 capsule 3 times a day times a day times a by oral by oral day by route as route as oral route directed directed as for 30 for 30 directed days. days. for 30 days. hydrocodone hydrocodone No hydrocodon [place] 7.5 7.5 e 7.5 da mg-acetamin mg-acetamin mg-acetami Medical ophen 325 ophen 325 nophen 325 Group mg tablet mg tablet mg tablet ibuprofen ibuprofen No ibuprofen [place] 600 mg 600 mg 600 mg da tablet tablet tablet [facility] Jardiance Jardiance No Jardiance [place] 10 mg 10 mg 10 mg da tablet Take tablet Take tablet Medical 1 tablet by 1 tablet by Take 1 Group mouth once mouth once tablet by daily daily mouth once daily latanoprost latanoprost No latanopros [place] 0.005 % eye 0.005 % eye t 0.005 % da drops drops eye drops Medical INSTILL 1 INSTILL 1 INSTILL 1 Group DROP INTO DROP INTO DROP INTO EACH EYE EACH EYE EACH EYE EVERY DAY EVERY DAY EVERY DAY AT BEDTIME AT BEDTIME AT BEDTIME lisinopril lisinopril No lisinopril [place] 20 20 20 da mg-hydrochl mg-hydrochl mg-hydroch Medical orothiazide orothiazide [facility]orothiazi Group 12.5 mg 12.5 mg de 12.5 mg tablet TAKE tablet TAKE tablet 1 TABLET BY 1 TABLET BY TAKE 1 MOUTH ONCE MOUTH ONCE TABLET BY DAILY DAILY MOUTH ONCE DAILY nifedipine nifedipine No nifedipine [place] ER 60 mg ER 60 mg ER 60 mg da tablet,exte tablet,exte tablet,ext Medical nded nded ended Group release release release Take 1 Take 1 Take 1 tablet tablet tablet every day every day every day by oral by oral by oral route in route in route in the the the evening. evening. evening. OneTouch OneTouch No OneTouch [place] Delica Delica Delica da Lancets 33 Lancets 33 Lancets 33 Medical gauge gauge gauge Group OneTouch OneTouch No OneTouch [place] Ultra Blue Ultra Blue Ultra Blue da Test Strip Test Strip Test Strip Medical Take 100 Take 100 Take 100 Stefano up strips strips strips twice a day twice a day twice a by miscell. by miscell. day by route. route. miscell. route. OneTouch OneTouch No OneTouch [place] Ultra2 Ultra2 Ultra2 da Meter kit Meter kit Meter kit [facility] rosuvastati rosuvastati No rosuvastat [place] n 20 mg n 20 mg in 20 mg da tablet TAKE tablet TAKE tablet Medical 1 TABLET BY 1 TABLET BY TAKE 1 Group MOUTH ONCE MOUTH ONCE TABLET BY DAILY DAILY MOUTH ONCE DAILY Tresiba Tresiba No Tresiba [place] [facility] FlexTouch FlexTouch FlexTouch da U-100 U-100 U-100 Medical insulin 100 insulin 100 insulin Group unit/mL (3 unit/mL (3 100 mL) mL) unit/mL (3 subcutaneou subcutaneou mL) s pen s pen subcutaneo INJECT 10 INJECT 10 us pen UNITS UNITS INJECT 10 SUBCUTANEOU SUBCUTANEOU UNITS SLY ONCE SLY ONCE SUBCUTANEO DAILY DAILY USLY ONCE DIRECTED DIRECTED DAILY DIRECTED Vital Signs Vital Name Observation Time Observation Value Comments Source BP Diastolic 2020-08-18 00:00:00 72 mm[Hg] [facility] Height 2020-08-18 00:00:00 58.5 [in_i] [facility] BMI (Body Mass 2020-08-18 00:00:00 25.5 kg/m2 [facility] Medical Index) Group BP Systolic 2020-08-18 00:00:00 148 mm[Hg] [facility] Body Weight 2020-08-18 00:00:00 124 [lb_av] [facility] BP Diastolic 2019-10-10 00:00:00 73 mm[Hg] [facility] Height 2019-10-10 00:00:00 58.5 [in_i] [facility] BMI (Body Mass 2019-10-10 00:00:00 25.6 kg/m2 [facility] Medical Index) Group BP Systolic 2019-10-10 00:00:00 168 mm[Hg] [facility] Body Weight 2019-10-10 00:00:00 1990 [oz_av] [facility] BP Diastolic 2019-09-12 00:00:00 91 mm[Hg] [facility] Height 2019-09-12 00:00:00 58.5 [in_i] [facility] BMI (Body Mass 2019-09-12 00:00:00 25.6 kg/m2 [facility] Medical Index) Group BP Systolic 2019-09-12 00:00:00 166 mm[Hg] [facility] Body Weight 2019-09-12 00:00:00 1992 [oz_av] [facility] BP Diastolic 2019-03-29 00:00:00 76 mm[Hg] [facility] Height 2019-03-29 00:00:00 58.5 [in_i] [facility] BMI (Body Mass 2019-03-29 00:00:00 24 kg/m2 [facility] Medical Index) Group BP Systolic 2019-03-29 00:00:00 143 mm[Hg] [facility] Body Weight 2019-03-29 00:00:00 1872 [oz_av] [facility] Temperature Oral (F) 2019-11-13 17:10:00 98.3 F [facility] Heart Rate 2019-11-13 17:10:00 [facility] Respitory Rate 2019-11-13 17:10:00 Cassi Tadeo Systolic (mm Hg) 2019-11-13 17:10:00 [facility] Diastolic (mm Hg) 2019-11-13 17:10:00 [facility] Temperature Oral (F) 2019-11-13 15:03:00 97.4 F [facility] Heart Rate 2019-11-13 15:03:00 [facility] Respitory Rate 2019-11-13 15:03:00 [facility] Systolic (mm Hg) 2019-11-13 15:03:00 [facility] Diastolic (mm Hg) 2019-11-13 15:03:00 [facility] Temperature Oral (F) 2019-11-13 10:03:00 98.3 F [facility] Heart Rate 2019-11-13 10:03:00 [facility] Respitory Rate 2019-11-13 10:03:00 [facility] Systolic (mm Hg) 2019-11-13 10:03:00 [facility] [place] Diastolic (mm Hg) 2019-11-13 10:03:00 [facility] Height 2019-11-11 05:40:00 375.92 cm [facility] Weight 2019-11-11 05:40:00 [facility] BMI Calculated 2019-11-11 05:40:00 [facility] Height 2019-11-10 13:33:00 149.86 cm [facility] BMI Calculated 2019-11-10 13:33:00 [facility] Weight 2019-11-10 13:33:00 [facility] Temperature Oral (F) 2014 18:00:00 97.9 F [facility] Respitory Rate 2014 18:00:00 [facility] Heart Rate 2014 18:00:00 [facility] Systolic (mm Hg) 2014 18:00:00 [facility] Diastolic (mm Hg) 2014 18:00:00 [facility] Diastolic (mm Hg) 2014 13:00:00 [facility] Systolic (mm Hg) 2014 13:00:00 [facility] [place] Respitory Rate 2014 13:00:00 [facility] Heart Rate 2014 13:00:00 [facility] Temperature Oral (F) 2014 13:00:00 98.1 F [facility] Temperature Oral (F) 2014 12:36:00 98.4 F [facility] Systolic (mm Hg) 2014 12:36:00 [facility] Heart Rate 2014 12:36:00 [facility] Diastolic (mm Hg) 2014 12:36:00 [facility] Respitory Rate 2014 12:36:00 [facility] [place] BMI Calculated 2014-11-04 22:30:00 [facility] Weight 2014-11-04 22:30:00 [facility] Height 2014-11-04 22:30:00 149.86 cm [facility] Temperature Oral (F) 2014-10-10 22:00:00 97.7 F [facility] Temperature Oral (F) 2014-10-10 18:20:00 98.6 F [facility] Diastolic (mm Hg) 2014-10-10 18:00:00 [facility] Systolic (mm Hg) 2014-10-10 18:00:00 [facility] [place] Diastolic (mm Hg) 2014-10-10 16:00:00 [facility] [place] Systolic (mm Hg) 2014-10-10 16:00:00 [facility] Temperature Oral (F) 2014-10-10 14:11:00 97.7 F [facility] Systolic (mm Hg) 2014-10-10 13:54:00 [facility] [place] Diastolic (mm Hg) 2014-10-10 13:54:00 [facility] Respitory Rate 2014-10-09 16:52:00 [facility] [place] Respitory Rate 2014-10-09 09:18:00 [facility] Respitory Rate 2014-10-09 08:00:00 [facility] Height 2014-10-01 15:17:00 149.86 cm [facility] Weight 2014-10-01 15:17:00 [facility] BMI Calculated 2014-10-01 15:17:00 [facility] Systolic (mm Hg) 2014-08-13 22:40:00 [facility] Diastolic (mm Hg) 2014-08-13 22:40:00 [facility] [place] Respitory Rate 2014-08-13 22:40:00 [facility] [place] Temperature Oral (F) 2014-08-13 22:40:00 97.9 F [facility] Heart Rate 2014-08-13 22:40:00 [facility] Respitory Rate 2014-08-13 14:19:00 [facility] [place] Heart Rate 2014-08-13 14:19:00 [facility] Temperature Oral (F) 2014-08-13 14:19:00 98.1 F [facility] Diastolic (mm Hg) 2014-08-13 14:19:00 [facility] [place] Systolic (mm Hg) 2014-08-13 14:19:00 [facility] Temperature Oral (F) 2014-08-13 10:00:00 98.6 F [facility] Diastolic (mm Hg) 2014-08-13 10:00:00 [facility] Systolic (mm Hg) 2014-08-13 10:00:00 [facility] Respitory Rate 2014-08-13 10:00:00 [facility] Heart Rate 2014-08-13 10:00:00 [facility] Weight 2014-08-12 15:08:00 [facility] BMI Calculated 2014-08-12 15:08:00 [facility] [place] Height 2014-08-12 15:08:00 149.86 cm [facility] Weight 2014-08-12 07:16:00 [facility] Height 2014-08-12 07:16:00 149.86 cm [facility] BMI Calculated 2014-08-12 07:16:00 [facility] Temperature Oral (F) 2014-07-23 21:54:00 98.2 F [facility] Diastolic (mm Hg) 2014-07-23 20:15:00 [facility] [place] Systolic (mm Hg) 2014-07-23 20:15:00 [facility] Respitory Rate 2014-07-23 20:15:00 [facility] [place] Diastolic (mm Hg) 2014-07-23 17:00:00 [facility] Systolic (mm Hg) 2014-07-23 17:00:00 [facility] Respitory Rate 2014-07-23 17:00:00 [facility] Temperature Oral (F) 2014-07-23 16:43:00 97.0 F [facility] Systolic (mm Hg) 2014-07-23 15:00:00 [facility] Diastolic (mm Hg) 2014-07-23 15:00:00 [facility] [place] Respitory Rate 2014-07-23 15:00:00 [facility] [place] Temperature Oral (F) 2014-07-23 12:00:00 97.6 F [facility] Weight 2014-07-19 11:07:00 [facility] Weight 2014-07-18 10:55:00 [facility] Weight 2014-07-17 12:28:00 [facility] BMI Calculated 2014-07-17 12:28:00 [facility] [place] Height 2014-07-17 12:28:00 149.86 cm [facility] BMI Calculated 2014-07-15 21:38:00 [facility] Height 2014-07-15 21:38:00 149.86 cm [facility] Respitory Rate 2014-06-10 16:30:00 [facility] [place] Diastolic (mm Hg) 2014-06-10 16:30:00 [facility] Systolic (mm Hg) 2014-06-10 16:30:00 [facility] Diastolic (mm Hg) 2014-06-10 13:59:00 [facility] Respitory Rate 2014-06-10 13:59:00 [facility] [place] Systolic (mm Hg) 2014-06-10 13:59:00 [facility] [place] Diastolic (mm Hg) 2014-06-10 13:26:00 [facility] Systolic (mm Hg) 2014-06-10 13:26:00 [facility] Respitory Rate 2014-06-10 13:26:00 [facility] [place] Temperature Oral (F) 2014-06-10 12:00:00 98.5 F [facility] Temperature Oral (F) 2014-06-10 05:00:00 99.8 F [facility] Temperature Oral (F) 2014-06-10 01:00:00 99.5 F [facility] Heart Rate 2014-06-09 13:30:00 [facility] Height 2014-06-09 13:30:00 149.86 cm [facility] BMI Calculated 2014-06-09 13:30:00 [facility] [place] Weight 2014-06-09 13:30:00 [facility] Weight 2014-05-28 19:32:00 [facility] Height 2014-05-28 19:32:[address] [facility] Cal[facility] 2014-05-28 19:32:00 Cassi Tadeo BMI Calculated 2014-05-28 19:31:00 Cassi Tadeo Height 2014-05-28 19:31:00 149.86 cm [facility] Weight 2014-05-28 19:31:00 [facility] Procedures Procedure Date / Time Performing Clinician Source Performed [U] XRAY FEMUR 2 VWS 2020-02-07 00:00:00 [facility] LEFT [id number] Physicians [U] XRAY FEMUR 2 S 2019-12-20 00:00:00 [facility] LEFT [id number] Physicians Stent placement 2013-09-25 00:00:00 [facility] Hysterectomy 1993-09-25 00:00:00 [facility] Amputation [facility] [place] [address] Physicians History of Percutaneous [facility] Transluminal Physicians Angioplasty (Non-Coronary) Cataract Surgery [facility]ste[facility] Amputation Follow-up [facility] Encounters Start End Encounter Admission Attending Care Care Encounter Source Date/Time Date/Time Type Type Clinicians Facility Department ID 2020-08-18 2020-08-18 Fermín [facility] [place] - [id number] [facility] 00:00:00 00:00:00 Cuate Olsen MD: Medical Medica l [address] [place] [address] General [address], [place] [address] , Ph. [phone] 2020-02-12 2020-02-12 [facility] [id number] Univers 10:15:00 10:15:00 t; FRANCO NEUMANN, Trauma pablo GAMEZ [facility].D. [facility] 2020-01-01 2020-01-01 [facility] 6 [id number] Univers 13:45:00 13:45:00 t; MAGDY Trauma Sabi [facility] 2020-01-01 2020-01-01 [facility] [id number] Univers 13:00:00 13:00:00 t; FRANCO NEUMANN Trauma ity o f ANDREW, M.D. [facility] 2019-12-04 2019-12-04 [facility] Moe UTP [id number] Univers 12:30:00 12:30:00 t; pablo [facility] [place] [facility]ol[facility] 2019-11-10 2019-11-[address] [facility] [id number] [facility] 05:52:00 23:00:[address] 2019-11-09 2019-11-[address] [facility] [id number] 23:52:00 17:00:00 Gloria 46 2019-11-11 2019-11-11 OS[facility] Ro [facility] [id number] Univers 07:00:00 07:00:00 t; FRANCO NEUMANN ity o f ANDREW, M.D. [facility] 2019-11-10 2019-11-09 Inpatient E [facility] MED [id number] [facility] 03:43:00 23:25:00 2019-10-10 2019-10-10 Michael [facility] [place] - [id number] M [facility] 00:00:00 00:00:00 Discovery Kyle da PA: [address] [place] [address] [place] [address] , Ph. 2019-09-12 2019-09-12 Michael [facility] [place] - [id number] M [facility] 00:00:00 00:00:00 Discovery Kyle da PA: [address] [place] [address] - [address] [place] [address] , Ph. 2019-03-29 2019-03-29 Michael [facility] [place] - [id number] M [facility] 00:00:00 00:00:00 Discovery Kyle da PA: [address] [place] [address] [place] [address] , Ph. 2014-11-04 2014 [facility] [id number] Memoria 21:21:00 22:40:00 leonard Cano 41 l [facility] 2014-11-04 2014 Outpatient Elvin, 2.16.840. 2.16.840.1. [id number] 15:21:00 16:40:00 Nic [id number] 3.615.0.1 5.0.626 21 3914-01-07 2014-10-11 [facility] [id number] Mem[facility] 14:23:00 01:50:00 leonard [facility] 07 [facility] 2014-10-01 2014-10-10 Outpatient Abisai 2.16.840. 2.16.840.1. [id number] 08:23:00 19:50:00 Patricia Grossman [id number] 3.615.0.1 5.0.425 05 3603-11-18 2014-08-[address] [facility] [id number] [facility] 07:13:00 01:00:00 Observatio leonard [facility] 03 l n Patient [facility] 2014-08-12 2014-08-13 Outpatient [place], 2.16.840. 2.16.840. 1. [id number] 01:13:00 19:00:00 Matt [id number]. [id number] 3.615.0.1 5.0.657 94 0233-10-21 2014-07-23 [facility] [id number] Memoria 21:19:00 22:00:00 leonard [place] 95 [facility] 2014-07-15 2014-07-23 Outpatient Perrylisa, 2.16.840. 2.16.840.1 . [id number] 16:19:00 17:00:00 Patricia [id number] 3.615.0.1 5.0.870 87 7839-10-21 2014-07-16 Outpatient [place] [facility] [id number] Memoria 18:09:00 04:59:00 r [place] 94 l [facility] 2014-07-15 2014-07-15 Outpatient Natalie, 2.16.840. 2.16.840.1 . [id number] 13:09:00 23:59:00 Ali [id number] 3.615.0.1 5.0.761 78 1845-09-30 2014-06-25 Outpatient [place] [facility] [id number] Memoria 22:00:00 04:59:00 r [place] 73 l [facility] 2014-06-24 2014-06-24 Outpatient Natalie, 2.16.840. 2.16.840.1 . [id number] 17:00:00 23:59:00 Ali [id number] 3.615.0.1 5.0.237 25 5158-09-15 2014-06-10 [facility] [id number] Mem[facility] 20:49:00 18:59:00 r [place] 01 [facility] 2014-06-09 2014-06-10 Outpatient Natalie, 2.16.840. 2.16.840.1 . [id number] 15:49:00 13:59:00 Ali [id number] 01 3.615.0.1 5.0.313 39 1809-09-03 2014-05-29 Outpatient [place] [facility] [id number] Memoria 18:57:00 04:59:00 [facility] 00 [facility] 2014-05-28 2014-05-28 Outpatient Dario, 2.16.840. 2.16.840.1. [id number] 13:57:00 23:59:00 Brinda Walsh [id number] 3.615.0.1 5.0.101 01 Results Test Description Test Time Test Comments Results Result Comments Source CHEM PANEL 2019-11-[address]M PANEL 2019-11-13 37 [facility] Raquel nn 12:02:00 CHEM PANEL 2019-11-13 1.45 [facility] Raquel nn 12:02:00 CHEM PANEL 2019-11-13 138 [facility] Raquel nn 12:02:00 CHEM PANEL 2019-11-13 4.0 [facility] Arquel nn 12:02:00 CHEM PANEL 2019-11-13 108 [facility] nn 12:02:00 CHEM PANEL 2019-11-13 23 [facility] nn 12:02:00 CHEM PANEL 2019-11-13 8.3 [facility] nn 12:02:00 CHEM PANEL 2019-11-13 11.0 [facility] nn 12:02:00 CHEM PANEL 2019-11-13 38 [facility] nn 12:02:00 CHEM PANEL 2019-11-13 2.4 [facility] nn 12:02:00 CHEM PANEL 2019-11-13 2.6 [facility] nn 12:02:00 HEMATOLOGY 2019-11-13 66.0 [facility] nn 12:02:00 HEMATOLOGY 2019-11-13 22.2 [facility] nn 12:02:00 HEMATOLOGY 2019-11-13 9.2 [facility] nn 12:02:00 HEMATOLOGY 2019-11-13 1.9 [facility] nn 12:02:00 HEMATOLOGY 2019-11-13 0.7 [facility] nn 12:02:00 HEMATOLOGY 2019-11-13 7.6 [facility] nn 12:02:00 HEMATOLOGY 2019-11-13 2.5 [facility] nn 12:02:00 HEMATOLOGY 2019-11-13 1.1 [facility] nn 12:02:00 HEMATOLOGY 2019-11-13 0.2 [facility] nn 12:02:00 HEMATOLOGY 2019-11-13 0.1 [facility] nn 12:02:00 HEMATOLOGY 2019-11-13 11.5 [facility] nn 12:02:00 HEMATOLOGY 2019-11-13 2.62 [facility] nn 12:02:00 HEMATOLOGY 2019-11-13 8.3 [facility] nn 12:02:00 HEMATOLOGY 2019-11-13 23.8 [facility] nn 12:02:00 HEMATOLOGY 2019-11-13 90.7 [facility] nn 12:02:00 HEMATOLOGY 2019-11-13 12:02:00 Test Item Value Reference Range Interpretation Comme nts MCH (test code = MCH) 31.5 pg 27.0-31.0 [facility] TykvmvmBIWEKPJCED0041-66-01 12:02:0034.7[facility]ann[facility]MATOLOGY 2019-11-13 12:02:0013.1[facility] MocxvapISHVSQZICS4119-21-88 12:02:95564Yhsflrzr CqawnnqGSLCNTYFWE0932-26-19 12:02:007.2[facility] HermannCHEM TKZWI8820-41-29 08:14:002.4[facility] HermannCHEM RHXWW5920-80-05 08:14:14825Vorqcfae HermannCHEM MOGLK7495-63-01 08:14:0035[facility]annCHEM CIVJA8423-77-83 08:14:002.08 [facility]ann[facility] QTQIH5666-62-28 08:14:22245Kiorzsrw HermannCHEM PANEL 2019-11-12 08:14:004.3[facility]annCHEM EOXBJ5903-50-80 08:14:69186Owqprqwf HermannCHEM ABGNI6587-60-20 08:14:0023[facility] HermannCHEM ALJND0869-45-16 08:14:0012.3[facility] HermannCHEM SULDL1418-74-73 08:14:007.7[facility] HermannCHEM FYEVI5879-02-10 08:14:0025[facility] HermannCHEM HOYZI3970-83-14 08:14:004.2 [facility] PvimrfyVEOOBRMSEE0640-14-33 08:14:0086.8[facility]annHEMATOLOGY 2019-11-12 08:14:005.4[facility] WzrgbjwGKHCPDVATG0414-13-56 08:14:007.6[facility] YkkdcddHYBTNVPBLL3344-93-47 08:14:000.2[facility] UtaipliRWYQSYARNK6170-93-40 08:14:0010.5[facility] CibtvahWGOUPVGDDU8119-86-42 08:14:000.7[facility] APEXANEFSN9721-97-66 08:14:000.9[facility] AxmblzzEOIGKBPQQA8716-57-24 08:14:00 12.1[facility] NbacujjNUSANEWMVW9448-79-06 08:14:002.98[facility]ann[facility]MATOLOGY 2019-11-12 08:14:009.1[facility] GlmhevgGDBGNFDBRS6111-72-42 08:14:0027.0[facility] GcmswmhCUZJLAQHFJ0392-74-63 08:14:0090.7[facility] CzkodzbQTRSVSWZIM4221-15-61 08:14:00 Test Item Value Reference Range Interpretation Comments MCH (test code = MCH) 30.6 pg 27.0-31.0 [facility] DlwgivhLQKNTOKGRH3704-52-56 08:14:0033.7[facility]annHEMATOLOGY 2019-11-12 08:14:0012.7[facility] KgvylpqVVKUOCCGZL6339-55-92 08:14:61661Lbrqcfhm OzzoelhIXSYUQNNFJ9379-87-26 08:14:007.4[facility] HermannCHEM WWWKD7782-72-84 23:02:91961Kazqmrmh HermannCHEM OPHUR8573-40-12 23:02:0032[facility] HermannCHEM EUDQA0712-93-51 23:02:002.08[facility] HermannCHEM EZFRH0813-15-90 23:02:49795 [facility]annCHEM DBJHJ2942-96-23 23:02:005.4[facility] HermannCHEM PANEL 2019-11-11 23:02:19907Hvfmszmq HermannCHEM YKSBV4882-71-36 23:02:0022[facility] HermannCHEM YQRYB0956-86-54 23:02:007.8[facility]annCHEM HHTYF1271-59-39 23:02:0013.4[facility]annCHEM QLARG6860-61-34 23:02:0025[facility] RCNSOIBULV9169-21-69 23:02:0017.3[facility] PwbknfwGURNYCTHLP5582-08-71 23:02:00 3.51[facility] TegrprrPPMRAXZMKX1479-83-79 23:02:0010.6[facility]annHEMATOLOGY 2019-11-11 23:02:0032.3[facility] TjstmgjTVDECVEFCE4006-86-30 23:02:0092.1[facility] ExvtqgrSCPVTUMSFK6017-52-06 23:02:00 Test Item Value Reference Range Interpretation Comments MCH (test code = MCH) 30.2 pg 27.0-31.0 [facility] HgscsbsQWOVCYOWSM8113-34-76 23:02:0032.8[facility]annHEMATOLOGY 2019-11-11 23:02:0013.2[facility] VpgjicqNOTXHKEPEY4050-26-32 23:02:70920Ntqmuebp RqxxwyzMKTHHMSWYD9648-03-99 23:02:007.4[facility] JcvrzhbSAPYCFPSIB8992-76-12 23:02:00Normal (11/11/19 5:02 PM)[facility] UpehvfvSBLDYZJRWW1325-25-13 23:02:00 Normal (11/11/19 5:02 PM)[facility] WxtbrtiLIADXXZHVW5803-18-16 23:02:0094.7 [facility] ViltinzCSEEXNDRFP0160-05-82 23:02:001.9[facility] HermannHEMATOLOGY 2019-11-11 23:02:003.3[facility] JsknwiiBYUPHWAXLZ6734-78-67 23:02:000.1[facility] YczqtvhABXMKPACKB9829-53-29 23:02:0016.4[facility] YuxijacEUEBWWANJG4625-70-01 23:02:000.3[facility] RruommkAQVZEWCQTX6770-36-98 23:02:000.6[facility]annBLOOD BANK BCAPFUI7105-03-65 03:24:00Negative (11/10/19 9:24 PM)[facility] CARDIAC VYMDMDG9962-47-56 13:13:0975[facility] JddychrVXVGOACKRL1674-66-31 09:51:00 Test Item Value Reference Range Interpretation Comments PTT (test code = PTT) 24.1 s 22.9-35.8 [facility] YrqrpntVSSKZLUPWP7753-28-95 09:51:00 Test Item Value Reference Range Interpretation Comments PT (test code = PT) 12.7 s 12.0-14.7 [facility] UbjknzjNHKPYNZTWU8788-33-94 09:51:00 Test Item Value Reference Range Interpretation Comments INR (test code = INR) 0.95 1 0.85-1.17 [facility] DkwebxpUSFHNHNYRC8314-56-51 09:51:00Normal (11/10/19 3:51 AM)[facility] CggfcmrFOQBWFOWKL5739-17-46 09:51:00Normal (11/10/19 3:51 AM)[facility] DNJTHECZAN8924-37-93 09:51:00Negative *NA*(11/10/19 3:51 AM)[facility] SPECIAL AUOIVZZNN5461-62-43 10:48:067.1[facility] HermannCHEM JOKPH8606-59-93 10:48:008.2[facility] HermannCHEM EBNHU1439-42-05 10:48:0016[facility] HermannCHEM ZVGLT9991-17-48 10:48:0029[facility] HermannCHEM FOCDW1143-79-41 10:48:29271 [facility]annCHE[facility] REQWH3355-99-70 10:48:004.3[facility]annCHEM PANEL 2014-11-06 10:48:07059Ntbkgapr HermannCHEM YQRXX3355-79-68 10:48:90085Bszhiivf HermannCHEM QOKQW4079-75-47 10:48:0063[facility]annCHEM IFOUS0513-80-52 10:48:001.0[facility]annCHEM DRUAK1891-63-77 10:48:0010.3[facility] XSSVLMYHEL1618-77-17 10:48:0017.3[facility] XomjenfBXGJDOGSQL6005-58-83 10:48:00 3.48[facility] YjioaccNPDKWIEPTV9177-00-55 10:48:009.5[facility] HermannHEMATOLOGY 2014-11-06 10:48:0086.4[facility] KyjgevoOKOJMCXGTQ3653-29-03 10:48:0010.0[facility] BuhaazmUZRRGLZTJY7771-05-83 10:48:0030.0[facility] KxudggaWBPJZZQPOF2103-43-58 10:48:007.5[facility] EemoypbCQYOTYZGOA9338-25-46 10:48:30308Bgmqndho Jerome XSRHWROALL3634-43-81 10:48:0033.3[facility] AbjbxytXQRHFDTHYR0947-24-56 10:48:00 Test Item Value Reference Range Interpretation Comments MCH (test code = MCH) 28.8 pg 27.0-31.0 [facility] LapqxuuWXWSZVWMKG7414-41-64 10:48:006.8[facility] HermannHEMATOLOGY 2014-11-06 10:48:001.3[facility] GciszlfBMIDMPDLVT7955-21-27 10:48:000.1[facility] LuhasdqLAJCXZVRTS5009-35-28 10:48:008.8[facility] VwbfjzgMEORUOQABC7060-32-98 10:48:0017.7[facility] XfagwqrBBJRZZQLBG9831-12-64 10:48:0072.1[facility] AJSHVWCASI2720-10-94 10:48:000.1[facility] RqgthxtTSFJTYZAWL8281-32-62 10:48:001.7 [facility] WwkpniyRLPDQSTQOZ4780-07-49 10:48:000.8[facility] HermannCHEM PANEL 2014-11-06 00:15:000.9[facility]annCHEM XFPWC5155-83-29 00:15:0071[facility] ShoolkuGSURESGNCJ1711-23-99 00:15:13837[place] FxuwzzuIWHBWBDIAS8509-85-79 00:15:0032[facility] CavmmgfXPWPEUPWMK2964-54-42 10:51:08<2.9[facility] CHEM AMYHU0166-67-18 10:51:0019[facility]annCHEM IJUSG5192-36-59 10:51:0028 [facility]annCHEM XHLFA5366-94-58 10:51:000.9[facility]annCHEM PANEL 2014-11-05 10:51:003.2[facility]annCHEM XXAOE8148-56-42 10:51:000.7[facility]annCHEM GFYZL0182-49-72 10:51:006.2[facility]annCHEM ADSXA8683-97-43 10:51:98787Udatkiwr HermannCHEM PLPAQ9428-55-14 10:51:004.1[facility]annCHEM BOTFH5014-10-06 10:51:34378Ebyngsin HermannCHEM CAAOU6841-11-65 10:51:0028 [facility]annCHE[facility] BTSCJ8717-34-43 10:51:0025[facility]annCHEM PANEL 2014-11-05 10:51:0028[facility]annCHEM IDTTD3250-71-41 10:51:0012.1[facility]annCHEM BPWBN2959-24-68 10:51:14127Pjgfdqsz HermannCHEM WGILB2513-45-59 10:51:003.0[facility]annCHEM UPQCO1173-07-68 10:51:008.4[facility]annCHEM LQCBS3754-36-85 10:51:000.9[facility]annCHEM LJNBI5451-14-80 10:51:0071 [facility]annCHEM WGSFP8472-66-43 10:51:0080[facility]annHEMATOLOGY 2014-11-05 04:30:11 Test Item Value Reference Range Interpretation Comments PTT (test code = PTT) 31.3 s 22.9-35.8 [facility]annCHEM WZTRS1407-89-60 04:30:0026[facility]annCHEM PANEL 2014-11-05 04:30:0028[facility]annCHEM HBOEO3618-08-07 04:30:26461Xbgmyeqi HermannCHEM NZAYB9352-32-18 04:30:28056Jmcdgnju HermannCHEM GQXLZ6295-11-50 04:30:39632Harnditm HermannCHEM CYPRN6898-55-78 04:30:004.2[facility]annCHEM EHWGY1508-45-02 04:30:008.4[facility]annCHEM PFLKK9412-28-99 04:30:0012.2 [facility] LlhikraHVRTAOGVON2653-13-83 04:30:000.7[facility] HermannHEMATOLOGY 2014-11-05 04:30:000.1[facility] RgpovqsPOWBKNNYQR6210-15-60 04:30:006.0[facility] OjstvwqSHOHNJKGTJ8733-87-63 04:30:002.5[facility] CumjddmPQFXTJCNKJ1972-82-10 04:30:0064.6[facility] XtdlwtjPODUXELDXK6180-55-08 04:30:0026.7[facility] XBHKAKJRAH2611-55-69 04:30:007.0[facility] LoalobqVCZQPHBOYZ8837-40-84 04:30:001.2 [facility] LxnzlnqUWVUCEORMK9321-12-46 04:30:000.5[facility] HermannHEMATOLOGY 2014-11-05 04:30:003.66[facility] UkisuceUYMUIPPPZH1991-30-57 04:30:009.3[facility] ZuhotugYOHCDFWUNF4920-18-71 04:30:0010.4[facility] CvngudoBMNRVJZYVJ8201-54-82 04:30:0086.1[facility] KdxueybTWZOGQSSPX1480-94-71 04:30:0031.5[facility] WEZMAQCTIQ9448-88-36 04:30:0033.0[facility] PkjmwcaVERUETCXUE2877-40-17 04:30:00 17.8[facility] XmglbduRFNKTMRXMG0134-39-27 04:30:00 Test Item Value Reference Range Interpretation Comments MCH (test code = MCH) 28.4 pg 27.0-31.0 [facility] LxldmvrAGMEICNGOF8256-32-41 04:30:00400Knehzrce HermannHEMATOLOGY 2014-11-05 04:30:007.8[facility]annCHEM KPZNQ9951-26-02 10:20:001.6[facility]annCHEM ZATXG5450-72-13 10:20:003.0[facility] AfnxfzeHJQQGKLDNHIE6569-53-85 10:20:0017.4[facility] EijmqdmHCRPUAPLDANV4245-95-16 10:20:70748Nxthsmga [place] IBGDOQNVZSLA2020-61-70 10:20:004.4[facility] GsfthjpFHOZNMNSKDGX2492-59-74 10:20:97243Gvfdoaxc MwgxaefWBULNYNSFQFY1404-11-59 10:20:0012[facility] RXGFQUIILKRH8264-08-87 10:20:98308Yiyiztyf DvxyrirVZSJGFENYFYN5216-54-91 10:20:0071[facility] JlwawaeJVTINNMPNFVX0266-21-06 10:20:0019[facility] HTKIWDOBUIUL6779-52-82 10:20:007.6[facility] TdegltdDMHBQCCHSPUL6209-06-74 10:20:000.9[facility] ZozhyedMQKTUSKYRG0622-17-43 10:20:0017.7[facility] OLCHNZSBHW1894-76-01 10:20:66504Njfsenuw FoiibupOVIVSTLPED1824-64-77 10:20:00 86.2[facility] GztnmuxEFPOMLBSWE8409-62-43 10:20:007.3[facility] HermannHEMATOLOGY 2014-10-10 10:20:003.06[facility] KxwvjfvVTQKPNSQQH6700-45-95 10:20:0026.3[facility] OndkvvbAKVCFMOGFD2852-96-59 10:20:00 Test Item Value Reference Range Interpretation Comments MCH (test code = MCH) 28.5 pg 27.0-31.0 [facility] AnkddjbGAIKOQWNYT0938-15-73 10:20:0033.1[facility] HermannHEMATOLOGY 2014-10-10 10:20:008.3[facility] KzeeriqCGSKGMCNLC5109-04-33 10:20:008.7[facility] UdpkqxmKYXKHEUQTN5088-33-52 10:20:001.0[facility] AzsqztpJGBEZOQKYE7415-70-91 10:20:001.3[facility] VcpridzLMTZKDWABK8391-34-59 10:20:000.1[facility] SHVRPSFJHJ3924-00-87 10:20:001.4[facility] DhugtmhJUXOEEHHHG9832-17-76 10:20:00 12.4[facility] MuqbmcvCNPUDBBKPG2118-70-73 10:20:0070.3[facility] HermannHEMATOLOGY 2014-10-10 10:20:005.8[facility] AdpqpjlEISJSWTUAE8695-37-12 10:20:000.4[facility] GvcklytHPQUSCXYSF9619-27-54 10:20:0015.5[facility] YruinefCBQCRTQFLF0104-21-66 10:20:001.10[facility] HczbxyhYIBDTSSVPM8626-35-91 10:20:00 Test Item Value Reference Range Interpretation Comments PTT (test code = PTT) 34.4 s 22.9-35.8 [facility] JkzprqaUYCUYYVCTW0952-18-88 10:20:00 Test Item Value Reference Range Interpretation Comments PT (test code = PT) 14.3 s 12.0-14.7 [facility] HermannPARATHYROID QAWEXCU6192-55-44 10:20:001.07[facility] PARATHYROID AKVLTUA7686-29-06 10:20:001.04[facility] OmlsqnaBRUBPIHKFQ3544-58-57 11:13:00 Test Item Value Reference Range Interpretation Comments PTT (test code = PTT) 32.9 s 22.9-35.8 [facility] CgjzmvkGCEAGIVZSU7167-63-75 11:13:001.04[facility] HermannHEMATOLOGY 2014-10-09 11:13:00 Test Item Value Reference Range Interpretation Comments PT (test code = PT) 13.6 s 12.0-14.7 [facility] HermannCARDIAC STIFPZJ2909-02-79 09:30:679802Ozfiteza HermannCHEM PANEL 2014-10-09 09:30:003.2[facility] HermannCHEM DXVRB5875-37-78 09:30:002.3[facility] HermannCHEM KEURK0296-18-54 09:30:0071[facility]annCHEM YGOWB2957-13-69 09:30:08784Wavgjktw HermannCHEM ZICWV9166-42-55 09:30:000.9[facility]annCHEM EGLNE7584-68-68 09:30:004.2[facility]annCHEM NKNRC3601-49-08 09:30:0016 [facility]annCHEM BWENW8303-95-11 09:30:008.5[facility] HermannCHEM PANEL 2014-10-09 09:30:0023[facility] HermannCHEM FQOJL4461-58-17 09:30:0099[facility]annCHEM CDYJE1604-95-68 09:30:0014.2[facility]annCHEM ECIKZ6938-27-88 09:30:0098[facility] JeekzsdYEZFNKVHLS3709-50-85 09:30:007.8[facility] FZTUKMZLCS7596-53-31 09:30:0033.4[facility] UykgvvfMWQRELPWNP8806-38-26 09:30:00 17.9[facility] NlkglxjSHFHXSOBWW3777-61-42 09:30:41506Qsmzppnn HermannHEMATOLOGY 2014-10-09 09:30:002.99[facility] VtuusgoVZOHPTRUKY9694-20-12 09:30:008.6[facility] XfgxkmaLDYTSEUXVG1978-81-85 09:30:0025.7[facility] LoaycvfLBQFMWOWUS5722-56-57 09:30:0086.0[facility] SfeklmjIWNFQCCSJG9814-90-19 09:30:00 Test Item Value Reference Range Interpretation Comments MCH (test code = MCH) 28.7 pg 27.0-31.0 [facility] ErxhqlvTKZPOQPKKF9477-82-05 09:30:0012.3[facility] HermannHEMATOLOGY 2014-10-09 09:30:000.4[facility] SonfklcAXNPNKFEAW9658-19-54 09:30:009.3[facility] RnbchteORZQMVTXRP8794-55-27 09:30:001.4[facility] QfxjurhEDWEOLBFVG3133-86-50 09:30:001.5[facility] XppjvnqXIESWPDLRV5015-11-08 09:30:000.1[facility] KXVFYYZOWE4014-88-25 09:30:0011.6[facility] VegkcmzTYWRFVHLCO7235-06-56 09:30:00 75.0[facility] OsypblbFPHHMYOVKZ4585-68-55 09:30:0012.0[facility] HermannHEMATOLOGY 2014-10-09 09:30:001.0[facility] HzisezuYJSHOTTUX2159-77-00 09:30:80478Gbjvpzyy HermannPARATHYROID WOJAEKP8466-12-33 09:30:001.08[facility] HermannPARATHYROID GFDGITW9189-75-37 09:30:001.06[facility] HermannCARDIAC DGREYWU6768-53-97 09:44:00 1782[facility] HermannCHEM MEOOB2259-65-09 09:44:002.2[facility] HermannCHEM PANEL 2014-10-08 09:44:0071[facility] HermannCHEM XJEGZ4921-77-35 09:44:000.9[facility] HermannCHEM NFUTJ9469-25-94 09:44:008.3[facility] HermannCHEM MCVME7350-68-07 09:44:0025[facility]annCHEM BRNJM5658-83-03 09:44:31648Euhrxczo HermannCHEM MPCKR4550-79-48 09:44:37054Efhhrbbo HermannCHEM ZBUKM2339-50-23 09:44:004.0 [facility]annCHEM KILKU8593-45-76 09:44:0020[facility]annCHEM PANEL 2014-10-08 09:44:0074[facility]annCHEM TZQRM8970-70-00 09:44:0012.0[facility] HermannCHEM AWAPH6756-43-16 09:44:003.2[facility] RqlmjhgMBGUNEROWA3609-18-31 09:44:0018.0[facility] ZghbeiaEGABQZPJPR9241-58-69 09:44:04875Uigysojo [facility] AIRWYXUMHP2479-48-64 09:44:00 Test Item Value Reference Range Interpretation Comments MCH (test code = MCH) 28.9 pg 27.0-31.0 [facility] LujcifwIOETNKCPZJ1906-36-33 09:44:0033.7[facility] HermannHEMATOLOGY 2014-10-08 09:44:008.0[facility] GgcpxbcVCNETYKQZV5895-26-21 09:44:003.00[facility] OxaxfmiHVXIUCMRWF6923-55-74 09:44:008.7[facility] CkmmynyWNWDSCPDLW5910-67-78 09:44:0025.7[facility] ZzseetuKDLYYHSUUW4907-48-62 09:44:0085.8[facility] EKIDQQTUDV9503-24-45 09:44:0014.1[facility] HxfpneuOWDHPEOBKP4125-52-20 09:44:00 1.03[facility] EzzevcvCTJZMGSXOS0395-28-91 09:44:00 Test Item Value Reference Range Interpretation Comments PT (test code = PT) 13.5 s 12.0-14.7 [facility] SnppelkIASPMBFGAT6018-36-71 09:44:00 Test Item Value Reference Range Interpretation Comments PTT (test code = PTT) 38.7 s 22.9-35.8 [facility] LebswijEWWYBFTQAH5862-96-86 09:44:001.6[facility] HermannHEMATOLOGY 2014-10-08 09:44:000.1[facility] ThlioigJLOAWUECAD3803-64-46 09:44:000.1[facility] TfktlsqASQDUQNSLJ6851-12-64 09:44:000.7[facility] XrizgkzTVLHSRTLJX3212-76-19 09:44:000.5[facility] EvggbqvWRMUIZFPJZ0263-80-70 09:44:0010.6[facility] OCPOTYKZUD4480-32-51 09:44:0011.2[facility] VzwjxxiITECUHUIUS7129-97-59 09:44:00 1.8[facility] AqxhyrrOFLOSBEPIT2097-44-70 09:44:0075.0[facility] HermannHEMATOLOGY 2014-10-08 09:44:0012.6[facility] FtounbfNYHSVBCPA7054-29-40 09:44:03338Rhgjhlzv HermannPARATHYROID PWCXIMS4445-79-12 09:44:001.09[facility] HermannPARATHYROID XQAVHHW9496-03-64 09:44:001.09[facility] HermannBLOOD BANK QBERHJC3130-82-01 07:52:00Negative (10/07/14 1:52 AM)[facility] TxvtdfjCRRKNWLBVM1989-86-59 07:52:00 Normal (10/07/14 1:52 AM)[facility] SwgumdpSWJEWBWCIW1495-91-91 07:52:00Normal (10/07/14 1:52 AM)[facility] DxopxcfWTMLHZUNWF8750-30-65 20:47:000.1[facility] HermannCARDIAC PEANMPO3143-46-48 09:26:979922Pqksnsya HermannCARDIAC ENZYMES 2014-10-06 09:26:001.3[facility] HermannCARDIAC YOMQQZL9377-47-14 09:26:0076.9 [facility] MdhxuenDTPSCNPFP3755-03-19 09:26:189915Htvbwpvo HermannCARDIAC ENZYMES 2014-10-05 08:53:86504Yaucdwrh HermannCHEM LHVDY6071-12-52 08:53:003.1[facility] HermannCHEM BXIOF4209-14-63 08:53:000.8[facility] HermannCHEM CDOIZ0213-23-02 08:53:001.5[facility] HermannCHEM AYSPU0863-99-66 08:53:001.8[facility] HermannCHEM BXLSF5277-22-66 08:53:000.3[facility] HermannCHEM TCYEN2611-99-59 08:53:0063 [facility]annCHEM ZMBQJ8105-98-40 08:53:005.5[facility] HermannCHEM PANEL 2014-10-05 08:53:002.4[facility] HermannCHEM TEDQI5017-17-50 08:53:0051[facility] HermannCHEM ISCDL7690-77-24 08:53:20498Wzxffeul HermannBLOOD BANK RESULTS 2014-10-05 01:22:00Product available (10/04/14 7:22 PM)[facility]annHEMATOLOGY 2014-10-04 23:41:08893Sfutdywp HermannBLOOD BANK CGFARAI5903-58-10 16:50:00 Modification Required (10/04/14 10:50 AM)[facility]annBLOOD BANK RESULTS 2014-10-04 09:26:00Negative (10/04/14 3:26 AM)[facility]annHEMATOLOGY 2014-10-04 09:26:0095[facility]annBLOOD BANK UFNKPNF6101-28-35 04:43:00 Product available (10/03/14 10:43 PM)[facility] OwynzttTWTGSRXAMQ1532-68-57 03:34:00 307[facility]annBLOOD BANK XSQZJKH5102-22-34 23:09:00Modification Required (10/03/14 5:09 PM)[facility]annBLOOD BANK OCXJSFG0253-92-82 22:58:00 Modification Required (10/03/14 4:58 PM)[facility] HermannCHEM UHRDT0496-73-39 21:08:71970Tnieqrmb AvuhdjgCBSXWJRDVI7755-94-88 16:04:000.1[facility] ZSJRPGNXVX0245-27-52 05:12:00Normal (10/02/14 11:12 PM)[facility]annHEMATOLOGY 2014-10-03 05:12:00Normal (10/02/14 11:12 PM)[facility] HermannBACTERIAL - SEROLOGY 2014-10-01 15:53:00Negative 16(10/01/14 9:53 AM)[facility]annBLOOD BANK RESULTS 2014-10-01 15:53:00Negative (10/01/14 9:53 AM)[facility]annURINE AND STOOL 2014-10-01 15:53:005.5[facility]annURINE AND ONJNU1597-64-40 15:53:00Negative *NA*(10/01/14 9:53 AM)[facility]annURINE AND JNBKE2224-90-28 15:53:001.007 [facility]UR[facility] AND YAGZX3094-99-95 15:53:00Clear (10/01/14 9:53 AM)[facility]annURINE AND IRKCX4747-51-89 15:53:00Negative (10/01/14 9:53 AM)[facility]annURINE AND LWPCY9686-51-46 15:53:00Negative (10/01/14 9:53 AM)[facility]annURINE AND XDVWT0301-14-60 15:53:001[facility]annURINE AND STOOL 2014-10-01 15:53:00Negative (10/01/14 9:53 AM)[facility]annURINE AND STOOL 2014-10-01 15:53:00Light Yellow *NA*(10/01/14 9:53 AM)[facility] HermannCARDIAC NOBEGPU8627-59-45 19:20:0041[facility] HermannCARDIAC ZUKAYOY8747-77-03 19:20:00 <0.02[facility] HermannCARDIAC WFAASXJ4206-21-46 12:40:00<0.02[facility] HermannCARDIAC YFVJECA7820-33-73 12:40:0045[facility]annCARDIAC ENZYMES 2014-08-12 08:00:006.7[facility]annCARDIAC UOJDFVF3314-90-49 08:00:0056 [facility]annCARDIAC UIOSGLH1385-44-79 08:00:0063[facility]annCARDIAC LONFUAL5797-32-88 08:00:004.2[facility] HermannCARDIAC FAOQCCI6625-98-54 08:00:00 <0.02[facility] HermannCHEM OCLUG6753-27-47 08:00:0082[facility] HermannCHEM KJJKA0350-58-59 08:00:000.7[facility] HermannCHEM KHBKR8016-36-61 08:00:004.6 [facility]annCHEM GTPZM8855-60-77 08:00:0011.8[facility] HermannCHEM PANEL 2014-08-12 08:00:0014[facility] HermannCHEM GVHVZ7113-77-82 08:00:000.2[facility]annCHEM KXPNL3969-44-29 08:00:87402Tdmthrgk HermannCHEM QBDHH0151-92-53 08:00:0023[facility]annCHEM YOEBA9021-97-31 08:00:008.0[facility]annCHEM KUKPO1548-86-87 08:00:003.4[facility]annCHEM UUYVQ3711-98-14 08:00:0019 [facility]annCHEM WHKTS3764-55-39 08:00:008.9[facility] HermannCHEM PANEL 2014-08-12 08:00:0029[facility] HermannCHEM FCJUD5323-07-54 08:00:0099[facility]annCHEM FRUFI0045-60-21 08:00:003.8[facility]annCHEM BGRKS1886-14-40 08:00:36040Gflplzzv HermannCHEM LDQVF7013-82-56 08:00:000.8[facility] HermannCHEM DOHQL3917-32-23 08:00:0011[facility]annCHEM IHTXP2929-16-95 08:00:69721 [facility] OtokkcuLOWURVAXXN9386-86-68 08:00:000.2[facility] HermannHEMATOLOGY 2014-08-12 08:00:000.1[facility] UrztketJVDOIIFKRU0686-36-58 08:00:000.8[facility] MkfpsvxOJRZGTLCIR5861-63-17 08:00:000.7[facility] QqdnsdsGWASCUMZGD8971-16-61 08:00:004.2[facility] OhvypnsEFAFFCEFHB8745-69-19 08:00:002.9[facility] BEKWJAYWFN9279-62-83 08:00:002.1[facility] PywibxcAJLCYWUMEQ1808-03-78 08:00:009.9 [facility] FtqiatuKRMTFCJBMJ1816-96-98 08:00:0029.1[facility] HermannHEMATOLOGY 2014-08-12 08:00:0057.3[facility] GustbmlCVSMRMGTND3559-04-47 08:00:00 Test Item Value Reference Range Interpretation Comments PTT (test code = PTT) 32.8 s 22.9-35.8 [facility] BouihdnPHRJJLEPUQ9192-38-95 08:00:00 Test Item Value Reference Range Interpretation Comments PT (test code = PT) 12.6 s 12.0-14.7 [facility] IbmmeupZDXOPUCURH3990-32-60 08:00:000.94[facility] HermannHEMATOLOGY 2014-08-12 08:00:00 Test Item Value Reference Range Interpretation Comments MCH (test code = MCH) 29.7 pg 27.0-31.0 [facility] DeqiabgMRVCDTTVSD4796-76-68 08:00:0088.6[facility] HermannHEMATOLOGY 2014-08-12 08:00:007.3[facility] PgyejtqOYLQOXOFPL4271-48-31 08:00:0033.5[facility] AqnezraXHYZCRWULF2324-23-94 08:00:007.1[facility] HbblabaKCFOLDWDHO2434-59-54 08:00:0014.6[facility] FxktcspUQQWLFCXCR7387-09-17 08:00:13730Nurtdsqy Jerome YMGLVTSXOU2368-86-45 08:00:0032.9[facility] AzjcfxgGEGTGUFAQG1255-96-04 08:00:00 11.1[facility] TpuwtqoRNRVIVDWRG6047-46-41 08:00:003.72[facility] HermannCHEM PANEL 2014-07-21 05:45:002.3[facility] HermannCHEM HGXWT1039-81-60 05:45:003.5[facility] XslepgzQBJIPMAMHKUO7754-90-50 05:45:0013.5[facility] WqtbboyBVRMAQYKUXTF2796-56-49 05:45:0063[facility] YghxsuaJIBHVKMTRPXO2497-23-83 05:45:99626Lfkclqsk [facility] KLNOULWRTHJU5419-02-72 05:45:004.5[facility] VqcwibsNZPNGULDPLXR3512-60-23 05:45:34600Mqtnlzwo ZqwdqucPBYTSWDGFXHA3297-64-01 05:45:0025[facility] OFRQKTVKBLFN0251-71-57 05:45:007.7[facility] HrxuizoTFSYEFYIWKPG6395-03-91 05:45:001.0[facility] IxafiryAVJITQWHTHPB4863-28-87 05:45:0013[facility] NZQEHFPYELTO4232-30-36 05:45:32427Xtxghcpf UnpfrrsPBOTOCRXBZ4279-99-11 05:45:00 0.2[facility] FyiamjuZCRMHJIWQF0025-41-64 05:45:001.2[facility] HermannHEMATOLOGY 2014-07-21 05:45:000.1[facility] GdigzalKZHXNPQHZD0468-73-81 05:45:0016.7[facility] MuhpsszZVLNOOSSEQ9563-91-82 05:45:002.1[facility] CtqaceiWIBRUVAOLS4426-44-60 05:45:0012.6[facility] JcgusyxDGAXHVTLIH5742-94-57 05:45:0068.0[facility] MHPICIGKGP1654-77-24 05:45:001.emorial VrzlilkGCRYLYBUZZ1993-61-50 05:45:006.6 [facility] EdlyjbtAMKQIQFTPL7953-19-02 05:45:000.6[facility] HermannHEMATOLOGY 2014-07-21 05:45:007.3[facility] TgtmtjtFMKPHKKHSF2681-29-16 05:45:11234Okodnozu ZoeuspgEHTLZWPCLQ2170-87-55 05:45:0013.4[facility] OzcugkhKDZAKYPZWG7293-12-70 05:45:0034.2[facility] HdjpotsHGCJRNIILG3558-78-34 05:45:0021.7[facility] YFDZXPUJGK0209-22-79 05:45:0090.2[facility] LhzsuzwDQLGJVFKJY0910-56-14 05:45:00 Test Item Value Reference Range Interpretation Comments MCH (test code = MCH) 30.8 pg 27.0-31.0 [facility] NgjqgveASEMENRHFL0748-25-41 05:45:002.40[facility] HermannHEMATOLOGY 2014-07-21 05:45:007.4[facility] PiywnlgIVUCFNJNUM7499-53-31 05:45:009.6[facility] NpzpdgaOSTWECDEZN2492-84-84 05:45:000.99[facility] UzdlsrqBIVWPWNZFW6556-46-69 05:45:00 Test Item Value Reference Range Interpretation Comments PTT (test code = PTT) 41.4 s 22.9-35.8 [facility] DmzfplkHLYYHHUSPC4221-74-12 05:45:00 Test Item Value Reference Range Interpretation Comments PT (test code = PT) 13.1 s 12.0-14.7 [facility] HermannPARATHYROID MLCAZXX1848-95-17 05:45:001.00[facility] PARATHYROID YXZDYCD5210-26-14 05:45:001.01[facility] HermannCARDIAC ENZYMES 2014-07-20 08:10:214519Wwpesbse HermannCHEM YFFSL7055-56-19 08:10:0071[facility] HermannCHEM RYACQ4014-61-71 08:10:24113Lhjvloca HermannCHEM RMDQF9524-12-72 08:10:0024[facility] HermannCHEM FTMSS8073-90-27 08:10:0012[facility] HermannCHEM HXOUF1387-63-98 08:10:007.3[facility] HermannCHEM CWRDH7474-65-11 08:10:004.3 [facility] HermannCHEM MTUJC1881-84-85 08:10:05892Veeaholh HermannCHEM PANEL 2014-07-20 08:10:000.9[facility] HermannCHEM VSXAL0711-70-92 08:10:24041Htpchfvy HermannCHEM RXQTD4123-82-79 08:10:0012.3[facility] HermannCHEM ZHJMW0972-51-75 08:10:002.2[facility] HermannCHEM ISIGP4820-77-42 08:10:003.4[facility] MMOHIWJHBI1396-84-20 08:10:0013.2[facility] TmcgeobHAFBDIZSKP2007-63-09 08:10:00 36.2[facility] UhmumioCKYIQLOZCA5526-16-40 08:10:007.2[facility] HermannHEMATOLOGY 2014-07-20 08:10:58201Utnojrjq ExfmceaNZQPHKXYJU7376-87-74 08:10:0021.6[facility] YxhxpqcUMZLBNHNSP0462-51-68 08:10:0089.8[facility] CdgqeykDVXPQVGRDD2055-92-26 08:10:00 Test Item Value Reference Range Interpretation Comments MCH (test code = MCH) 32.5 pg 27.0-31.0 [facility] YehkfjgBAYVPWLTPD9397-03-10 08:10:0010.4[facility] HermannHEMATOLOGY 2014-07-20 08:10:002.40[facility] QmaahsqBPBVJCBNAG8043-23-00 08:10:007.8[facility] MpnggvcORVOCKFKNS8596-59-74 08:10:00 Test Item Value Reference Range Interpretation Comments PT (test code = PT) 13.5 s 12.0-14.7 [facility] BhuelbqVBINMYQBDG7048-02-16 08:10:00 Test Item Value Reference Range Interpretation Comments PTT (test code = PTT) 37.9 s 22.9-35.8 [facility] JijiojfEBASVJFMNT1433-57-39 08:10:001.03[facility]annHEMATOLOGY 2014-07-20 08:10:000.2[facility] ZbhgvdwUMNEBOAMYL2323-18-69 08:10:000.1[facility] WbveklyNVLRHAEAFX6319-52-38 08:10:000.7[facility] BsntxzvFGWSYNSXNJ7347-00-27 08:10:007.0[facility] JqpdkmvYZSYLGAPYD5704-52-11 08:10:001.7[facility] UGOJWBXJNM3392-12-53 08:10:001.4[facility] FcravrgLWPUNFLSBA1129-16-61 08:10:00 16.8[facility] YiiuvgfCZLYVVDBOF1383-69-34 08:10:0013.1[facility]annHEMATOLOGY 2014-07-20 08:10:002.0[facility] SmunlmwKTFESJMTOJ6499-46-65 08:10:0067.4[facility] RreemuqYQKRPDJST9273-43-24 08:10:14302Qbfcvtnv HermannPARATHYROID PROFILE 2014-07-20 08:10:000.99[facility] HermannPARATHYROID JMPAGVQ5464-49-85 08:10:00 0.99[facility] HermannCARDIAC ASKBXRX0439-03-62 07:47:494527Tqsmyohq HermannCHEM HRFDX9206-45-34 07:47:0056[facility]annCHEM XZYJE0218-59-16 07:47:27472 [facility]annCHE[facility] KDMUA6953-01-39 07:47:0010.7[facility]annCHEM PANEL 2014-07-19 07:47:007.1[facility]annCHEM FZJLP9098-62-90 07:47:0024[facility]annCHEM MEAHT9258-75-74 07:47:81310Lgvvuqcl HermannCHEM OTTLA8764-37-86 07:47:004.7[facility]annCHEM WYQRI2591-37-63 07:47:00100Dslphicx HermannCHEM NTVNZ5895-56-53 07:47:001.1[facility] HermannCHEM GUMUP7436-75-55 07:47:0013 [facility]annCHEM POIEX2337-48-39 07:47:002.9[facility]annCHEM PANEL 2014-07-19 07:47:003.2[facility] QtynzvrOZRXRHFXEX5960-07-20 07:47:001.7[facility] RcsizugIOTHWOZVRG4002-58-80 07:47:006.5[facility] VsxkmvhUGCAHLXNGE5677-57-25 07:47:000.2[facility] DornyouTIFUNEMZXA3781-63-81 07:47:001.3[facility] IAJGKFEYNR2965-29-86 07:47:0017.8[facility] UoxxlynLTKNQOGKHI8677-19-21 07:47:00 68.1[facility] AvocubwXDDYADYUFM3231-67-82 07:47:0013.2[facility]annHEMATOLOGY 2014-07-19 07:47:000.7[facility] UnorwjvWACTJNASXX4115-85-35 07:47:000.1[facility] UlgleejAZSTGDUWIA9070-23-06 07:47:002.54[facility] TtzqumwPFHWAZOUMJ9496-69-99 07:47:009.6[facility] XjphihnYSAGBJFLSV4066-92-54 07:47:008.2[facility] GJBTFUMOLR5984-48-62 07:47:00 Test Item Value Reference Range Interpretation Comments MCH (test code = MCH) 32.1 pg 27.0-31.0 [facility] OeijyziVYUITKSRSJ4362-86-66 07:47:0089.2[facility] HermannHEMATOLOGY 2014-07-19 07:47:0022.6[facility] CschmevBNRXHABOAN9497-19-53 07:47:0013.5[facility] JvzxykoBDVBCAIZAM3810-73-41 07:47:0036.0[facility] DnmafrpBSXQXROZZJ0853-95-92 07:47:09367Desopkgu SoqlqvmQHDIJHJWIW4924-60-85 07:47:007.6[facility] EKUDWDRTHU5601-69-22 07:47:00 Test Item Value Reference Range Interpretation Comments PTT (test code = PTT) 33.2 s 22.9-35.8 [facility] QzfvhcmXPJOAVAFIZ7599-13-70 07:47:00 Test Item Value Reference Range Interpretation Comments PT (test code = PT) 14.8 s 12.0-14.7 [facility] LohcjzyWBNGZKHZOT6304-14-79 07:47:001.15[facility] HermannMYOGLOBIN 2014-07-19 07:47:75921Mzfsubbn HermannPARATHYROID EYHBDCO3567-24-02 07:47:001.05 [facility]annPARATHYROID OXYWOMV3646-72-56 07:47:001.06[facility]annBLOOD BANK JOKETEK7911-13-93 16:49:00Product available (07/18/14 11:49 AM)[facility] HOYCQOB4542-21-47 12:45:00Negative (07/18/14 7:45 AM)[facility] CHEZRUZ2966-91-35 12:08:00Product available (07/18/14 7:08 AM) [facility]BL[facility] NYNBNZN1159-34-23 12:08:00Product available (07/18/14 7:08 AM)[facility] ACZICKJ9391-25-88 12:08:00Product available (07/18/14 7:08 AM)[facility] NzkvlumGKWIIBFQU7345-94-91 05:15:143271Slgyfdpy HermannCARDIAC LNIDEQR4963-24-09 05:15:075115Pfadpvrs HermannHEMATOLOGY 2014-07-17 05:15:010.1[facility] HgqznvvHLRFEVSKGM6268-38-47 23:15:18604Jeexbouh AnkbutkQIFWTZMFYK4669-57-53 12:40:0076[facility] SabyokcAGCAWYZTAM0018-29-94 12:40:00Normal (07/16/14 7:40 AM)[facility] BytrigyFKWSVLDYCU7333-98-06 12:40:00 Normal (07/16/14 7:40 AM)[facility] SzzgzkjUBHOSDNDPQ6189-22-73 08:47:75005 [facility] DltsrvxRWKQCAGNCP2287-77-84 04:00:00Normal (07/15/14 11:00 PM)[facility] BmbgrflFBADHGPZZV5845-98-21 04:00:00Normal (07/15/14 11:00 PM)[facility] BACTERIAL - ZWPLGGNT3785-94-17 23:50:00Negative 14(07/15/14 6:50 PM)[facility] HermannCHEM KGKUT2727-72-36 23:40:391.5[facility] HermannCHEM CVQMY1328-31-61 09:32:0471[facility] PckjbrvORDWVNPYWZ7784-98-85 09:32:0432.7[facility] NXRMYCCSTD4233-52-57 09:32:047.7[facility] SyajfixHWZANGENGE6563-84-53 09:32:04 34.5[facility] OwvefvdTZHSADMWMT1806-30-70 09:32:0412.7[facility] HermannHEMATOLOGY 2014-06-10 09:32:0488.8[facility] LmbfoyhWLWDYPCRYZ5119-21-67 09:32:80356Jilakkbj JugegvbPRFALMWVVJ5702-59-00 09:32:043.68[facility] McqzjjgBSDCQOHCPQ6617-96-73 09:32:0411.3[facility] OwbobenGEEJXPCMRZ3120-12-35 09:32:04 Test Item Value Reference Range Interpretation Comments MCH (test code = MCH) 30.7 pg 27.0-31.0 [facility] SqrilzgDQMLNQUYSC2614-54-79 09:32:0411.8[facility] HermannHEMATOLOGY 2014-06-10 09:32:040.1[facility] EgodosiXSGCZMDITM1812-03-78 09:32:041.1[facility] GehezhpAUHMJRWFRE7654-01-08 09:32:042.5[facility] ApatjmpDJZDPQVZSS1717-11-84 09:32:048.1[facility] BklqidgVLSBVZHOMV7000-22-49 09:32:040.3[facility] LUXSNHIITA2368-61-57 09:32:040.5[facility] SrfoazuSYOWAQZHJT7515-93-37 09:32:049.0 [facility] AxtvrbgDISESOTRII3156-90-26 09:32:0468.8[facility] HermannHEMATOLOGY 2014-06-10 09:32:0421.4[facility] WqnuocpCNTNCWKOMJ3872-92-27 09:32:041.00[facility] HqmpgvoPGXQBVMLLD8443-72-85 09:32:04 Test Item Value Reference Range Interpretation Comments PT (test code = PT) 13.2 s 12.0-14.7 [facility] ZgqbzkqNRYKMYFYZF3630-37-24 09:32:04 Test Item Value Reference Range Interpretation Comments PTT (test code = PTT) 45.0 s 22.9-35.8 [facility]annCHEM GYQTX4119-53-81 09:32:008.5[facility] HermannCHEM PANEL 2014-06-10 09:32:0014.9[facility] HermannCHEM WZBGL1732-53-92 09:32:82088Paitspzz HermannCHEM EAJRQ0096-58-97 09:32:71800Ancbdwno HermannCHEM SDFVY0613-93-41 09:32:0023[facility] HermannCHEM RDUZH3717-80-72 09:32:003.9[facility] HermannCHEM TYZZB7478-63-81 09:32:000.9[facility] HermannCHEM GKKSM1666-85-17 09:32:0016 [facility] HermannCHEM VBJDX8141-78-81 09:32:10535Dqnbvgol HermannHEMATOLOGY 2014-06-10 02:16:42 Test Item Value Reference Range Interpretation Comments PTT (test code = PTT) 29.6 s 22.9-35.8 [facility] MgjgpspFUKTODKTUT4884-39-80 02:16:42 Test Item Value Reference Range Interpretation Comments PT (test code = PT) 13.6 s 12.0-14.7 [facility] WofdniuDJSOKTAXOV9428-20-14 02:16:421.04[facility] HermannHEMATOLOGY 2014-06-10 02:16:40Normal (06/09/14 9:16 PM)[facility] IbbzedvQRQWJCUCOW0830-74-81 02:16:40Normal (06/09/14 9:16 PM)[facility] KymcurpIVOHACMZPU0634-19-33 02:16:401.7 [facility] ItfujxhBCZOOGAMVS7211-31-55 02:16:401.1[facility] HermannHEMATOLOGY 2014-06-10 02:16:400.3[facility] NjiryapMJBWGLDYIO6442-02-53 02:16:4010.8[facility] EuikyxnEBIBLBUTTH6254-57-28 02:16:408.0[facility] KoipkmoLASKSZKMJV4132-80-02 02:16:400.0[facility] KruaoynIZHLOWPLKN4701-83-51 02:16:402.0[facility] YTGSLOKKFW9599-61-66 02:16:400.0[facility] MjvooeqUNRIVVZVON3620-50-59 02:16:40 12.0[facility] FtqhhcgSLFHMMTWSQ6122-29-73 02:16:4078.0[facility] HermannHEMATOLOGY 2014-06-10 02:16:408.2[facility] UgqfmymVISQAXQYCO7052-19-25 02:16:4012.5[facility] HdedfbnHSEFHOAXYH6726-01-27 02:16:66424Sarexzfi SkvscppAJXZAKZWEW4966-90-17 02:16:4034.9[facility] TolaalfVBDIKHICBQ1589-80-82 02:16:4088.8[facility] KJTBFGULNJ4160-44-38 02:16:40 Test Item Value Reference Range Interpretation Comments MCH (test code = MCH) 31.0 pg 27.0-31.0 [facility] ZiuxzkrPZCISJTNWT6119-78-09 02:16:4033.0[facility] HermannHEMATOLOGY 2014-06-10 02:16:4013.9[facility] DlcqejyUWZIEOYUQB1194-58-01 02:16:4011.5[facility] EjrprelINIIMBIJAN7223-90-29 02:16:403.71[facility] HermannBLOOD BANK RESULTS 2014-06-09 14:07:00Negative (06/09/14 9:07 AM)[facility] HermannCHEM PANEL 2014-06-09 13:45:003.9[facility] HermannCHEM OECIC5677-92-15 13:45:001.5[facility] TighjteWAUASYNESCXJ6736-88-49 13:45:0011.9[facility] EbwcwvrHKOSKEVPFFKB9297-89-85 13:45:0096[facility] TvydsluVTOXSLLOVIEY0250-72-16 13:45:009.2[facility] NAVNOWXVIHAH5960-89-01 13:45:0027[facility] SfeywmgGXYKBEOSXPNA7691-90-18 13:45:00 101[facility] DytazoiDLFWVLZGZWDZ1059-96-86 13:45:004.9[facility] JPWQUVMGXWUX9393-86-72 13:45:73933Mekjemqx YjqsjdxDHKFGMSNBRJX6747-91-02 13:45:000.7[facility] BmibskiZNGVOJRHIJWZ6246-48-97 13:45:0024[facility] JBZRMYPYOITF3172-92-92 13:45:96166Gglnqrsq PpzjabxYIHMWMDDNK7216-59-71 13:45:00 0.4[facility] WioxfslITOYWMJUWI3576-90-20 13:45:000.8[facility] HermannHEMATOLOGY 2014-06-09 13:45:002.1[facility] WfojrlcJHBTRRNHET2845-33-61 13:45:000.3[facility] SiomesmLFMTEEOYPH9344-74-87 13:45:005.2[facility] BdbcesuPBCBMQMKQZ3862-71-85 13:45:004.4[facility] OoyjvvtSMIISLHETE0878-15-03 13:45:009.6[facility] SKHHUIJNUS3973-89-72 13:45:0060.8[facility] GezsywwHIMAXJQIQC3606-27-17 13:45:00 24.9[facility] ChkcnxiFKAXIMTZKD4307-76-91 13:45:00 Test Item Value Reference Range Interpretation Comments PTT (test code = PTT) 27.7 s 22.9-35.8 [facility] IjohjfcGXCIVOALFA8399-74-45 13:45:00 Test Item Value Reference Range Interpretation Comments PT (test code = PT) 12.9 s 12.0-14.7 [facility] MsvwkahXKKCTUOMEI9938-16-59 13:45:000.97[facility] HermannHEMATOLOGY 2014-06-09 13:45:0012.7[facility] TvchtmxTPWCMCPQAK7026-81-47 13:45:0035.3[facility] OyhbnteEVQCUPJRGX3691-37-89 13:45:008.4[facility] MwdcjwwPUBHHPPSYY1752-93-29 13:45:46657Rexeguqi TavucfpGVOLWJQYRX1628-12-49 13:45:00 Test Item Value Reference Range Interpretation Comments MCH (test code = MCH) 31.5 pg 27.0-31.0 [facility] OcpnlltXSHPHCAMVT6478-43-52 13:45:0089.2[facility] HermannHEMATOLOGY 2014-06-09 13:45:0013.2[facility] KfmkjmbXMGQXHJILY0783-65-31 13:45:0037.4[facility] RfijliwAIFAVRHPZH7131-48-26 13:45:008.6[facility] ItayxfsTJRKCXXPYQ6488-85-15 13:45:004.19[facility]
--- NOTE | 2021-05-01 19:11 | RAD REPORT ---
EXAM DESCRIPTION: CT - Head Brain Wo Cont - 05/01/2021 7:03 pm CLINICAL HISTORY: PAIN COMPARISON: No comparisons TECHNIQUE: All CT scans are performed using dose optimization technique as appropriate and may inclu de automated exposure control or mA/KV adjustment according to patient size. FINDINGS: No intracranial hemorrhage, hydrocephalus or extra-axial fluid collection.No areas of brai n edema or evidence of midline shift. Mild chronic small vessel ischemic changes. The paranasal sinuses and mastoids are clear. The calvarium is intact. IMPRESSION: No acute intracranial abnormality.
--- NOTE | 2021-05-01 20:18 | ER ---
Nurse's Notes [facility] Name: Meseret Grey Age: 65 yrs Sex: Female : 1955 Arrival Date: 05/01/2021 Time: 18:05 Bed 10 Private MD: Diagnosis: Acute headache Presentation: 05/01 18:25 Chief complaint: Patient states: Headache x 2 wks. Coronavirus screen: Client denies kg travel out of the [place] in the last 14 days. At this time, unable to obtain information related to travel outside the [place] Ebola Screen: Patient negative for fever greater than or equal to 101.5 degrees Fahrenheit, and additional compatible Ebola Virus Disease symptoms Patient denies exposure to infectious person. Patient denies travel to an Ebola-affected area in the 21 days before illness onset. No symptoms or risks identified at this time. Initial Sepsis Screen: Does the patient meet any 2 criteria? No. Patient's initial sepsis screen is negative. Does the patient have a suspected source of infection? No. Patient's initial sepsis screen is negative. Risk Assessment: Do you want to hurt yourself or someone else? Patient reports no desire to harm self or others. Onset of symptoms was April 17, 2021. 18:25 Method Of Arrival: Ambulatory kg 18:25 Acuity: JOHANA 3 kg Triage Assessment: 18:30 Headache History: Denies prior headaches. General: Appears in no apparent distress. kg Behavior is calm, cooperative, appropriate for age, quiet. Pain: Complains of pain in face Pain currently is 10 out of 10 on a pain scale. at worst was 10 out of 10 on a pain scale. level that patient reports is acceptable is 5 out of 10 on a pain scale. Quality of pain is described as stabbing, throbbing, Pain began 2 wks ago Is continuous, Also complains of nausea, photophobia. Neuro: Reports blurred vision since two wks photophobia since two wks. Historical: - Allergies: 18:27 No Known Allergies; kg - Home Meds: 18:27 Plavix 75 mg Oral tab 1 tab once daily [Active]; Levemir U-100 Insulin 100 unit/mL kg subcutaneous soln 10 unit daily [Active]; Jardiance 10 mg oral tab 1 tab once daily [Active]; lisinopril 10 mg Oral tab 1 tab once daily [Active]; hydrochlorothiazide 12.5 mg Oral cap 1 cap once daily [Active]; 18:43 Atenolol eye drop [Active]; kg - PMHx: 18:27 Hypertensive disorder; IDDM; DVT; kg 18:43 Glaucoma; kg - PSHx: 18:27 Left BKA; Left hip replacement; kg 18:30 Total abdominal hysterectomy; kg - Immunization history:: Adult Immunizations not up to date, Client reports having NOT received the Covid vaccine. - Social history:: Smoking status: Patient denies any tobacco usage or history of. Screenin:33 Abuse screen: Denies threats or abuse. Denies injuries from another. Nutritional kg screening: No deficits noted. Tuberculosis screening: No symptoms or risk factors identified. Fall Risk None identified. Assessment: 08:30 General: Appears in no apparent distress. uncomfortable, Behavior is calm, cooperative. bb Pain: Complains of pain in headache. Neuro: Level of Consciousness is awake, alert, obeys commands, Oriented to person, place, time, situation. Cardiovascular: No deficits noted. Respiratory: Respiratory effort is even, unlabored, Respiratory pattern is regular. GI: Abdomen is non-distended. Derm: Skin is pink, warm \T\ dry. Musculoskeletal: Amputation of left leg. 20:46 Reassessment: Patient is alert, oriented x 3, equal unlabored respirations, skin bb warm/dry/pink. pt verbalized understanding of and agrees to plan of care discharge instructions given pt ambulated with steady gait to exit accompanied by family. Vital Signs: 18:30 BP 162 / 75; Pulse 97; Resp 16; Temp 96.1(TE); Pulse Ox 100% on R/A; Weight 54.43 kg; kg Height 4 ft. 11 in. (149.86 cm); Pain 10/10; 20:35 BP 163 / 84; Pulse 94; Resp 16 S; Temp 97.4(O); Pulse Ox 97% on R/A; bb 18:30 Body Mass Index 24.24 (54.43 kg, 149.86 cm) kg ED Course: 18:05 Patient arrived in ED. as 18:27 Triage completed. kg 18:30 Arm band placed on right wrist. kg 18:33 Patient has correct armband on for positive identification. kg 19:02 CT Head Brain wo Cont In Process Unspecified. EDMS 20:04 David Weathers MD is Attending Physician. pkl 20:48 No provider procedures requiring assistance completed. ms4 20:48 Patient did not have IV access during this emergency room visit. ms4 Administered Medications: 20:30 Drug: Demerol (meperidine) 75 mg Route: IM; Site: right gluteus; bb 20:45 Follow up: Response: No adverse reaction bb 20:30 Drug: Phenergan (promethazine) 12.5 mg Route: IM; Site: right gluteus; bb 20:45 Follow up: Response: No adverse reaction bb Outcome: 20:18 Discharge ordered by . pkl 20:48 Discharged to home ambulatory. ms4 20:48 Condition: stable 20:48 Discharge instructions given to patient, Instructed on discharge instructions. 20:49 Patient left the ED. ms4 Signatures: Dispatcher [employer] EDMS David Weathers MD MD pkHeather Scott Brenda, RN RN Abby Bansal RN RN kg Stroud, Mikaela, RN RN ms4 Corrections: (The following items were deleted from the chart) 20:45 08:30 Demerol (meperidine) 75 mg IM in right gluteus bb bb
--- NOTE | 2021-05-01 20:18 | EDPHYS ---
Physician Documentation [facility] Name: Meseret Grey Age: 65 yrs Sex: Female : 1955 Arrival Date: 05/01/2021 Time: 18:05 Bed 10 Private MD: ED Physician David Weathers HPI: 05/01 20:13 This 65 yrs old Female presents to ER via Ambulatory with complaints of pkl Headache. 20:13 The patient complains of pain to the forehead, left temporal area, right side of the pkl back of head and right temporal area. The patient describes the headache as intermittent. Onset: The symptoms/episode began/occurred 3 week(s) ago, and became worse today. Associated signs and symptoms: The patient has no apparent associated signs or symptoms. Historical: - Allergies: 18:27 No Known Allergies; kg - Home Meds: 18:27 Plavix 75 mg Oral tab 1 tab once daily [Active]; Levemir U-100 Insulin 100 unit/mL kg subcutaneous soln 10 unit daily [Active]; Jardiance 10 mg oral tab 1 tab once daily [Active]; lisinopril 10 mg Oral tab 1 tab once daily [Active]; hydrochlorothiazide 12.5 mg Oral cap 1 cap once daily [Active]; 18:43 Atenolol eye drop [Active]; kg - PMHx: 18:27 Hypertensive disorder; IDDM; DVT; kg 18:43 Glaucoma; kg - PSHx: 18:27 Left BKA; Left hip replacement; kg 18:30 Total abdominal hysterectomy; kg - Immunization history:: Adult Immunizations not up to date, Client reports having NOT received the Covid vaccine. - Social history:: Smoking status: Patient denies any tobacco usage or history of. ROS: 20:13 Eyes: Negative for injury, pain, redness, and discharge, ENT: Negative for injury, pkl pain, and discharge, Neck: Negative for injury, pain, and swelling, Cardiovascular: Negative for chest pain, palpitations, and edema, Respiratory: Negative for shortness of breath, cough, wheezing, and pleuritic chest pain, Abdomen/GI: Negative for abdominal pain, nausea, vomiting, diarrhea, and constipation, Back: Negative for injury and pain, : Negative for injury, bleeding, discharge, and swelling, MS/Extremity: Negative for injury and deformity, Skin: Negative for injury, rash, and discoloration. 20:13 Neuro: Positive for headache, Negative for altered mental status, loss of consciousness. Exam: 20:13 Head/Face: Normocephalic, atraumatic. Eyes: Pupils equal round and reactive to light, pkl extra-ocular motions intact. Lids and lashes normal. Conjunctiva and sclera are non-icteric and not injected. Cornea within normal limits. Periorbital areas with no swelling, redness, or edema. ENT: Nares patent. No nasal discharge, no septal abnormalities noted. Tympanic membranes are normal and external auditory canals are clear. Oropharynx with no redness, swelling, or masses, exudates, or evidence of obstruction, uvula midline. Mucous membranes moist. Neck: Trachea midline, no thyromegaly or masses palpated, and no cervical lymphadenopathy. Supple, full range of motion without nuchal rigidity, or vertebral point tenderness. No Meningismus. Chest/axilla: Normal chest wall appearance and motion. Nontender with no deformity. No lesions are appreciated. Cardiovascular: Regular rate and rhythm with a normal S1 and S2. No gallops, murmurs, or rubs. Normal PMI, no JVD. No pulse deficits. Respiratory: Lungs have equal breath sounds bilaterally, clear to auscultation and percussion. No rales, rhonchi or wheezes noted. No increased work of breathing, no retractions or nasal flaring. Abdomen/GI: Soft, non-tender, with normal bowel sounds. No distension or tympany. No guarding or rebound. No evidence of tenderness throughout. Back: No spinal tenderness. No costovertebral tenderness. Full range of motion. Skin: Warm, dry with normal turgor. Normal color with no rashes, no lesions, and no evidence of cellulitis. MS/ Extremity: Pulses equal, no cyanosis. Neurovascular intact. Full, normal range of motion. Neuro: Awake and alert, GCS 15, oriented to person, place, time, and situation. Cranial nerves II-XII grossly intact. Motor strength 5/5 in all extremities. Sensory grossly intact. Cerebellar exam normal. Normal gait. Vital Signs: 18:30 BP 162 / 75; Pulse 97; Resp 16; Temp 96.1(TE); Pulse Ox 100% on R/A; Weight 54.43 kg; kg Height 4 ft. 11 in. (149.86 cm); Pain 10/10; 20:35 BP 163 / 84; Pulse 94; Resp 16 S; Temp 97.4(O); Pulse Ox 97% on R/A; bb 18:30 Body Mass Index 24.24 (54.43 kg, 149.86 cm) kg MDM: 20:04 Patient medically screened. pkl 20:13 Data reviewed: vital signs, nurses notes. ED course: Discussed CT Scan result with pkl patient. Advised to follow up with Neurologist in 2 to 3 days for further evaluations. Patient understood instructions. 05/01 18:34 Order name: CT Head Brain wo Cont; Complete Time: 20:06 kg Administered Medications: 20:30 Drug: Demerol (meperidine) 75 mg Route: IM; Site: right gluteus; bb 20:45 Follow up: Response: No adverse reaction bb 20:30 Drug: Phenergan (promethazine) 12.5 mg Route: IM; Site: right gluteus; bb 20:45 Follow up: Response: No adverse reaction bb Disposition Summary: 05/01/21 20:18 Discharge Ordered Location: Home pkl Problem: new pkl Symptoms: are unchanged pkl Condition: Stable pkl Diagnosis - Acute headache pkl Followup: pkl - With: Private Physician - When: 2 - 3 days - Reason: Re-evaluation by your physician Discharge Instructions: - Discharge Summary Sheet pkl Forms: - Medication Reconciliation Form pkl - Thank You Letter pkl - Antibiotic Education pkl - Prescription Opioid Use pkl Prescriptions: - Tramadol 50 mg Oral Tablet - take 1 tablet by ORAL route every 8 hours as needed; 12 tablet; Refills: 0, pkl Product Selection Permitted Signatures: Dispatcher [employer] David Taveras MD MD pkl Faviola Gallardo, RN RN bb Abby May, RN RN kg
[2021-05-01] MEDS ORDERED: MEPERIDINE HCL 50 MG/ML ONE (20:49)
[2021-05-01] MEDS ORDERED: PROMETHAZINE INJ 25 MG/ML AMP ONE (20:50)
[2021-05-01 20:58] VITALS: BP 162/75; TEMP 96.1; O2SAT 100
== END 2021-05-01 20:49 | disposition home or self-care (01) ==
LOC: ER 18:03
DX: R51.9 Headache, unspecified (principal); I10 Essential (primary) hypertension; E11.9 Type 2 diabetes mellitus without complications; Z79.4 Long term (current) use of insulin; Z79.01 Long term (current) use of anticoagulants; Z86.718 Personal history of other venous thrombosis and embolism
CPT/HCPCS: 70450; 96372; 99283; J2550; J2175